=== PATIENT | female | born 1950 | race Two or more races ===

== ENCOUNTER 2020-01-04 07:01 | Emergency (ER) | payer MEDICARE, OTHER ==
[~2020-01-04] VITALS: Ht 170.2 cm; Wt 77.1 kg
[2020-01-04 08:12] LABS: Basophils # (auto) 0.1 10 ^3/uL (0-0.2); Basophils % (auto) 0.8 % (0.0-2.0); Eosinophils # (auto) 0.2 10 ^3/uL (0-0.8); Hematocrit 40.9 % (36.0-46.0); Hemoglobin 13.5 g/dL (12.2-16.2); Lymphocytes # (auto) 1.8 10 ^3/uL (0.4-5.4); Lymphocytes % (auto) 29.7 % (10.0-50.0); Mean Corpuscular Hemoglobin 30.5 pg (28.0-32.0); Mean Corpuscular Hgb Conc. 33.1 g/dL (32.0-36.0); Mean Corpuscular Volume 92.1 fL (80.0-100.0); Monocytes # (auto) 0.7 10 ^3/uL (0-1.3); Monocytes % (auto) 11.9 % (0.0-12.0); Neutrophils # (auto) 3.3 10 ^3/uL (1.6-8.6); Neutrophils % (auto) 53.6 % (37.0-80.0); Nucleated Red Blood Cells % 0.1 %; Platelet Count (auto) 245 10^3/uL (140-450); Red Blood Cells 4.44 10^6/uL (4.0-5.20); Red Cell Distribution Width 13.2 % (11.8-14.3); White Blood Cell 6.2 10^3/uL (4.4-10.8)
[2020-01-04] MEDS ORDERED: SODIUM CHLORIDE 0.9% 1,000 ML IV ONE (08:19)
[2020-01-04 08:44] LABS: Albumin 3.7 g/dL (3.4-5.0); Anion Gap 7 (5-15); Calcium 9.2 mg/dL (8.5-10.1); Carbon Dioxide 26 mmol/L (21-32); Chloride 110 mmol/L (98-107); Potassium 4.3 mmol/L (3.5-5.1); Sodium 143 mmol/L (136-145)
[2020-01-04 08:47] LABS: Salicylate < 1.7 mg/dL (2.8-20.0)
[2020-01-04 08:53] LABS: Alanine Aminotransferase 23 U/L (13-56); Alkaline Phosphatase 88 U/L (45-117); Aspartate Aminotransferase 22 U/L (15-37); BUN/Creatinine Ratio 12.5; Bilirubin, Total 0.2 mg/dL (0.2-1.0); Blood Urea Nitrogen 8 mg/dL (7-18); GFR African American 118 mL/min; GFR Non-African American 98 mL/min; Glucose 141 mg/dL (74-106); Magnesium 2.1 mg/dL (1.6-2.6); Total Protein 7.5 g/dL (6.4-8.2)
[2020-01-04 08:56] LABS: Acetaminophen < 2.0 ug/mL (10-30)
[2020-01-04 09:08] LABS: INR 1.01 (0.9-1.15); Partial Thromboplastin Time 25.7 sec (23.0-31.2)
[2020-01-04 09:56] LABS: Urine Bacteria FEW /hpf (None Seen); Urine Blood Negative /uL (Negative); Urine Specific Gravity 1.007 (1.001-1.035); Urine WBC 6 /hpf (0 - 5)
[2020-01-04 10:03] LABS: Amphetamine Screen, Urine NEGATIVE (NEGATIVE); Barbiturate Scree,Urine NEGATIVE (NEGATIVE); Benzodiazephine Screen, Urine NEGATIVE (NEGATIVE); Cannabinoid Screen, Urine NEGATIVE (NEGATIVE); Cocaine Screen, Urine NEGATIVE (NEGATIVE); Opiate Scree,Urine NEGATIVE (NEGATIVE); Phencyclidine Screen, Urine NEGATIVE (NEGATIVE)
[2020-01-04] MEDS ORDERED: ATOR20TA PO (12:06)
[2020-01-04] MEDS ORDERED: LAMO150T26 PO (12:06)
[2020-01-04] MEDS ORDERED: LEVO125T7 PO (12:06)
[2020-01-04] MEDS ORDERED: LISI-648 PO (12:06)
[2020-01-04] MEDS ORDERED: METH750T3 PO (12:06)
[2020-01-04] MEDS ORDERED: AMLO5TAB15 PO (12:06)
[2020-01-04] MEDS ORDERED: GABA250S2 PO (12:06)
[2020-01-04] MEDS ORDERED: BUPR100T7 PO (12:06)
[2020-01-04] MEDS ORDERED: FLUT250M2 INH (12:06)
[2020-01-04] MEDS ORDERED: BUPR5DIS TOP (12:06)
[2020-01-04] MEDS ORDERED: MONT10TA34 PO (12:06)
[2020-01-04] MEDS ORDERED: FLUO60TA7 PO (12:06)
[2020-01-04] MEDS ORDERED: OMEP20TA PO (12:06)
[2020-01-04] MEDS ORDERED: FLUT0.05 NAS (12:06)
[2020-01-04] MEDS ORDERED: TRAZ-181 PO (12:06)
[2020-01-04] MEDS ORDERED: PERCOT PO (12:08)
[2020-01-04 17:01] VITALS: BP 160/70
== END 2020-01-04 17:45 | disposition home or self-care (01) ==
LOC: ER 07:01 → EDBD 07:01 → ER 17:45
DX: F31.9 Bipolar disorder, unspecified (principal); R40.4 Transient alteration of awareness; F10.10 Alcohol abuse, uncomplicated; Y90.9 Presence of alcohol in blood, level not specified
CPT/HCPCS: 36415; 70450; 71045; 80053; 80307; 80320; 80329; 81001; 82962; 83735; 84443; 84484; 85025; 85610; 85730; 93005; 96360; 96361

== ENCOUNTER 2023-07-09 09:23 | Emergency (ER) | payer MEDICARE ==
[~2023-07-09] VITALS: Ht 162.6 cm; Wt 82.0 kg
[~2023-07-09 09:23] MED LIST: AMLO1TAB22 PO; ATOR20TA PO; BUPR5DIS TOP; FLUO60TA7 PO; FLUT0.05 NAS; FLUT250M2 INH; GABA250S7 PO; LAMO150T26 PO; LEVO125T7 PO; LISI10TA34 PO; METH-1182 PO; MONT-8 PO; OMEP20TA PO; PERCOT PO; TRAZ-181 PO; [UNRECOGNIZED DRUG - CODE] PO
[2023-07-09 10:21] LABS: Chloride 108 mmol/L (98-107); Potassium 3.6 mmol/L (3.5-5.1); Sodium 143 mmol/L (136-145)
[2023-07-09 10:22] LABS: Anion Gap 6 (5-15); Calcium 9.4 mg/dL (8.5-10.1); Carbon Dioxide 29 mmol/L (20-30)
[2023-07-09 10:26] LABS: Basophils # (auto) 0 10 ^3/uL (0-0.2); Basophils % (auto) 0.6 % (0.0-2.0); Eosinophils # (auto) 0.1 10 ^3/uL (0-0.8); Hematocrit 37.4 % (36.0-46.0); Hemoglobin 12.5 g/dL (12.2-16.2); Lymphocytes # (auto) 1.5 10 ^3/uL (0.4-5.4); Lymphocytes % (auto) 20.9 % (10.0-50.0); Mean Corpuscular Hemoglobin 30.6 pg (28.0-32.0); Mean Corpuscular Hgb Conc. 33.3 g/dL (32.0-36.0); Mean Corpuscular Volume 91.8 fL (80.0-100.0); Monocytes # (auto) 0.6 10 ^3/uL (0-1.3); Monocytes % (auto) 8.2 % (0.0-12.0); Neutrophils # (auto) 4.8 10 ^3/uL (1.6-8.6); Neutrophils % (auto) 68.3 % (37.0-80.0); Red Blood Cells 4.08 10^6/uL (4.0-5.20); Red Cell Distribution Width 14.3 % (11.8-14.3); White Blood Cell 7.1 10^3/uL (4.4-10.8)
[2023-07-09 10:27] LABS: Blood Urea Nitrogen 7 mg/dL (9-23); Glucose 105 mg/dL (74-106)
[2023-07-09] MEDS: HYDROcodone-ACET 7.5/325MG TAB PO ONE (14:00)
[2023-07-09 14:33] VITALS: BP 141/73; PULSE 82; RESP 18; TEMP 98.4; O2SAT 95
[2023-07-09 14:34] LABS: Urine Bacteria NONE SEEN /hpf (None Seen); Urine Blood Negative /uL (Negative); Urine Clarity Clear (Clear); Urine Color Colorless (Yellow); Urine Protein, UAD Negative (Negative); Urine Specific Gravity 1.012 (1.001-1.035); Urine Urobilinogen Normal (Negative); Urine WBC 10 /hpf (0 - 5); Urine pH 6.5 (5.0-8.0)
== END 2023-07-09 14:34 | disposition home or self-care (01) ==
LOC: ER 09:23 → EDBD 09:23 → ER 14:30
DX: I10 Essential (primary) hypertension (principal); R19.7 Diarrhea, unspecified; E11.9 Type 2 diabetes mellitus without complications; E78.5 Hyperlipidemia, unspecified; J44.9 Chronic obstructive pulmonary disease, unspecified; Z79.899 Other long term (current) drug therapy
CPT/HCPCS: 36415; 80048; 81001; 85025; 93005

== ENCOUNTER 2024-09-03 10:52 | Inpatient (IN) | payer MEDICARE ==
[~2024-09-03] VITALS: Ht 160 cm; Wt 84.6 kg
--- NOTE | 2024-09-03 11:39 | ECG ---
[facility] Test Date: 2024-09-03 Test Time: 11:23:29 Pat Name: ANNALISA WEBER Department: ER Room: 0280T Gender: F Node Js Developer: JOSE CRUZ : 1950 Requested By: SADE HERNANDEZ Order Number: [id number] Reading MD: Scott Rose Measurements Intervals [place] Rate: 66 P: 60 IN: 185 QRS: 64 QRSD: 94 T: 58 QT: 427 QTc: 448 Interpretive Statements Sinus rhythm Low voltage, precordial leads RSR' in V1 or V2, right VCD or RVH Electronically Signed On 09-04-2024 21:12:24 PDT by Scott Rose Please click the below link to view image of tracing.
--- NOTE | 2024-09-03 11:52 | ED.PDOC ---
Musculoskeletal HPI Comments 73y F who presents to the ED for chief complaint of extremity swelling - pt states she has been having LLE leg, ankle and foot pain with swelling for the past 3 days - pt states she has history of DVT many years ago and states she was previously on blood thinner but states she is currently not taking blood thinner currently - pt now in the ED, noted to have 02 sat at 88% on room air air and placed on 2 L via nc but states she does use 2 L via nc as needed - pt otherwise denies shortness of breath, chest pain or any associated symptoms - Pt denies any other symptoms at this time PMH: DM, HTN, DVT, PE, asthma, HLD PSH: L knee, hernia, gallbladder, Meds: unknown Allergies: denies social history: denies ETOH use, denies tobacco use, denies drug use WEBER: Left lower extremity pain swelling HPI: Poor Historian. REVIEW OF SYSTEMS: CONSTITUTIONAL: Denies acute: fever, diaphoresis, chills, generalized weakness. HEAD: Denies acute: headache, photophobia Eyes: Denies acute: Double vision, vision loss, eye pain, eye discharge. EARS: Denies acute: tinnitus, hearing loss, ear discharge, ear pain, THROAT: Denies acute: sore throat, swelling, difficulty swallowing , pain with swallowin g, change in voice. NECK: Denies acute: neck pain, neck swelling, stiff neck. HEART: Denies acute : chest pain, palpitations, LUNGS: Denies acute: SOB, wheezing, cough, hemoptysis ABDOMEN: Denies acute: abdominal pain, Nausea, Vomiting, diarrhea, melena , hematemesis, hematochezia SKIN: Denies acute: rash, redness, lesions, itchiness. EXTREMITIES: Denies acute: calf pain, numbness, tingling, weakness, Denies acute: Low back pain. Neuro: Denies acute: focal neurological deficit, motor or sensory focal neurological deficit, tremors, seizure like activity, confusion, dizziness, change in mental status, loss of bowel or bladder function, cauda equina like symptoms. : Denies acute: dysuria, hematuria, flank pain, increase in urinary frequency. PSYCH: Denies acute: hallucination, suicidal ideation, homicidal ideation. FEMALE: Denies acute: abnormal vaginal bleeding, foul odor, unusual discharge. PHYSICAL EXAM: General: ---mild-----acute distress, awake and alert. Head: normocephalic, atraumatic. Neck: supple, trachea is midline, no swelling. Throat: Normal phonation. Eyes:, no erythema, no purulent discharge, no proptosis, no icterus. Heart: regular rate, regular rhythm, no significant murmur appreciated. Lungs: no apparent respiratory distress, Able to speak in full sentences. No wheezing, no rhonchi, no crackles. No stridors Clear to auscultation bilaterally. Abdomen: non tender to palpation, non distended, soft, no guarding, no rebound, + bowel sounds. Neuro: Awake, Alert, oriented to name, self, situation, follows commands GCS=15. Speech is normal. Skin: no petechia, no purpura, no cyanosis, non-pale, not jaundice. Lower extremities: --trace left lower extremity- Pitting edema Evaluation of the area of complaint of left lower extremity. no deformity, mild bran malleolar swelling, minimal erythema, patient is neurovascularly intact in the affected extremity. Pedal pulses palpable. Sensory and motor are present. Makes eye contact. moves all four extremities. Face: no apparent facial droop. Ambulating in the ED with a walker. ED COURSE: Chief Complaint: Extremity Swelling Time Seen by MD: 10:57 Primary Care Provider: STEVE Knox Notes: Nurses Notes Allergies: Coded Allergies: NO KNOWN ALLERGIES (Unverified , 07/09/23) Home Meds Reported Medications Oxycodone W/ Acetaminophen (Percocet 5/325MG) 1 Tab Tb, 1 TAB PO QID, #120 TAB 01/04/20 Trazodone HCl (Trazodone Hydrochloride) 50 Mg Tab, 100 MG PO HS, TAB 01/04/20 Omeprazole (Gnp Omeprazole) 20 Mg Tab, 2 TAB PO BID, #90 TAB 1 Refill 01/04/20 Montelukast Sodium (MONTELUKAST SODIUM) 10 Mg Tab, 1 TAB PO DAILY, #30 TAB 5 Refills 01/04/20 Methocarbamol (Methocarbamol) 750 Mg Tab, 750 MG PO BID for 30 Days, MG 01/04/20 Lisinopril (Lisinopril) 10 Mg Tab, 10 MG PO DAILY for 30 Days, MG 01/04/20 Levothyroxine Sodium (Levothyroxine Sodium) 125 Mcg Tab, 125 MCG PO QAM for 30 Days, MCG 01/04/20 Lamotrigine (Lamotrigine) 150 Mg Tab, 1 TAB PO BID, #60 TAB 1 Refill 01/04/20 Gabapentin (GABAPENTIN) 250 Mg/5 Ml [place], 400 MG PO BID, ML 01/04/20 Fluoxetine HCl (Fluoxetine) 60 Mg Tab, 30 MG PO, TAB 01/04/20 Fluticasone Propionate (Fluticasone Propionate) 0.05 % Cre, 50 MCG ISAIAS for 30 Days, MCG 01/04/20 Bupropion Hcl (Bupropion Hcl Sr) 100 Mg Tab, 100 MG PO, TAB 01/04/20 Buprenorphine (BUTRANS) 5 Mcg/Hr Dis, 1 PATCH TOP QWEEKLY, #4 PATCH 1 Refill 01/04/20 Atorvastatin Calcium (Lipitor) 20 Mg Tab, 1 TAB PO DAILY, #90 TAB 1 Refill 01/04/20 Amlodipine Besylate (Amlodipine Besylate) 5 Mg Tab, 2.5 MG PO DAILY for 30 Days, MG 01/04/20 Fluticasone-Salmeterol (Advair Diskus 250/50) 1 Puff Ih, 1 PUFF INH BID, #3 INHALER 3 Refills 01/04/20 Information Source: Patient Mode of Arrival: Wheelchair Past Medical History PAST MEDICAL HISTORY: COPD, DM, High Lipids, HTN Surgical History: Denies all surgeries 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 Was a procedure done?: No Differential Diagnosis EXT Differential Diagnosis: Cellulitis, CHF, Deep Vein Thrombosis, Compartment Syndrome, Fracture, Sprain, Dislocation, Laceration, Gout, DJD, Myocardial Infarction, Contusion, Strain, Rheumatoid, Septic, Hernia, Neurovascular injury, Arthritis, Bursitis, Other (Leg swellingDdx include but not limited to DVT, ischemic limb, pitting edema, volume overload, CHF, cellulitis, hematoma, compartment syndrome, dependent edema, venous stasis.) X-Ray, Labs, Meds, VS Vital Signs Date Time Temp Pulse Resp B/P (MAP) Pulse Ox O2 Delivery O2 Flow Rate FiO2 09/03/24 13:36 62 13 94 Nasal Cannula* 2 28 09/03/24 12:54 97.0 64 16 127/73 (91) 90 97.0 09/03/24 11:23 66 09/03/24 11:06 98.3 70 20 109/64 (79) 88 98.3 Lab Test 09/03/24 12:51 09/03/24 11:55 09/03/24 11:15 Range/Units Troponin I High Sensitivity 3 L 4 </=34 ng/L White Blood Count 7.3 4.4-10.8 10^3/uL Red Blood Count 4.46 4.0-5.20 10^6/uL Hemoglobin 13.6 12.2-16.2 g/dL Hematocrit 41.5 36.0-46.0 % Mean Corpuscular Volume 93.0 80.0-100.0 fL Mean Corpuscular Hemoglobin 30.5 28.0-32.0 pg Mean Corpuscular Hemoglobin Concent 32.8 32.0-36.0 g/dL Red Cell Distribution Width 13.7 11.8-14.3 % Platelet Count 206 140-450 10^3/uL Mean Platelet Volume 8.8 6.9-10.8 fL Neutrophils (%) (Auto) 54.4 37.0-80.0 % Lymphocytes (%) (Auto) 32.4 10.0-50.0 % Monocytes (%) (Auto) 10.6 0.0-12.0 % Eosinophils (%) (Auto) 1.9 0.0-7.0 % Basophils (%) (Auto) 0.7 0.0-2.0 % Neutrophils # (Auto) 4.0 1.6-8.6 10 ^3/uL Lymphocytes # (Auto) 2.4 0.4-5.4 10 ^3/uL Monocytes # (Auto) 0.8 0-1.3 10 ^3/uL Eosinophils # (Auto) 0.1 0-0.8 10 ^3/uL Basophils # (Auto) 0.1 0-0.2 10 ^3/uL Nucleated Red Blood Cells 0.0 % Erythrocyte Sedimentation Rate 8 0-20 mm/hr Prothrombin Time 10.7 9.3-11.8 sec Prothrombin Time INR 1.01 0.9-1.15 Activated Partial Thromboplast Time 28.1 24.5-34.5 SEC Sodium Level 143 136-145 mmol/L Potassium Level 4.3 3.5-5.1 mmol/L Chloride Level 103 98-107 mmol/L Carbon Dioxide Level 33 H 20-31 mmol/L Anion Gap 7 5-15 Blood Urea Nitrogen 14 9-23 mg/dL Creatinine 1.09 H 0.550-1.02 mg/dL Glomerular Filtration Rate Calc 54 >90 mL/min BUN/Creatinine Ratio 12.8 10.0-20.0 Serum Glucose 90 74-106 mg/dL Lactic Acid Level 0.5 0.4-2.0 mmol/L Calcium Level 10.6 H 8.7-10.4 mg/dL Total Bilirubin 0.3 0.2-1.0 mg/dL Aspartate Amino Transferase (AST) 15 13-40 U/L Alanine Aminotransferase (ALT) 17 7-40 U/L Alkaline Phosphatase 63 46-116 U/L C-Reactive Protein High Sensitivity 0.46 <1.0 mg/dL B-Type Natriuretic Peptide 94.56 0-100 pg/mL Total Protein 6.7 5.7-8.2 g/dL Albumin 4.4 3.2-4.8 g/dL Urine Color Light-yellow Yellow Urine Clarity Clear Clear Urine pH 5.5 5.0-9.0 Urine Specific [place] 1.015 1.001-1.035 Urine Protein Negative Negative Urine Ketones Negative Negative Urine Blood Negative Negative /uL Urine Nitrite Negative Negative Urine Bilirubin Negative Negative Urine Urobilinogen Normal Negative mg/dL Urine Leukocyte Esterase 1+ Negative /uL Urine RBC 1 0 - 4 /hpf Urine Microscopic WBC 4 0-5 /HPF Urine Squamous Epithelial Cells Few <5 /hpf Urine Bacteria None seen None Seen /hpf Urine Glucose Normal Normal mg/dL Current Medications Medications (Trade) Dose Ordered Sig/[place] Route Start Time Stop Time Status Last Admin Enoxaparin Sodium (Lovenox) 80 mg STAT STAT SC 09/03/24 12:46 09/03/24 12:47 DC 09/03/24 13:10 [facility] [id number] [place] [id number] Ph: [phone] DIAGNOSTIC IMAGING Diagnostic Imaging Report : [id number] Signed PATIENT: ANNALISA WEBERAACCT: [id number] UNIT: [id number] : 1950 LOC: ER ROOM / BED: / AGE / SEX: 73 / F ADM STATUS: REG ER SERVICE 1241 ORDERING PHYSICIAN: SADE HERNANDEZ DO PROCEDURE(s): CTACH - CT ANGIO CHEST CONTRAST REASON: DVT ORDER NUMBER(s): [id number], ACCESSION NUMBER(s): [id number] CLINICAL INFORMATION: 73 years old, Female; DVT. TECHNIQUE: Axial CTA images of the chest were obtained after the uneventful administration of 100 mL of Omnipaque 350 IV contrast. Coronal and sagittal reformatted images and MIP images were obtained, reviewed, and stored. One or mo re of the following dose reduction techniques were used: Automated exposure control. Adjustment of mA and/or kV according to patient size. CTDIvol = 27.3 mGy DLP = 884.14 mGy-cm COMPARISON: Chest radiograph dated 09/03/2024. Left lower extremity venous d uplex exam dated 09/03/2024. FINDINGS: Pulmonary arteries: No evidence of pulmonary embolism. Main pulmonary artery is dilated up to 4 cm, may be seen with pulmonary arterial hypertension in the appropriate clinical setting. Aorta: No aneurysm or dissection. Moderate atherosclerotic calcification. Cardiac: Heart size is within normal limits. Marked coronary artery calcifica tion. Mediastinum/jc: Mildly prominent mediastinal lymph nodes, with the largest measuring up to 1 cm in short axis of the AP window, likely reactive lymph nodes. Lungs: Atelectasis in the lower lobes bilaterally. Additional scattered subsegmental areas of atelectasis are seen patchy opacities in the left lower lobe, may be infectious or inflammatory in nature. Chest wall: No mass or other abnormality. Upper abdomen: Postsurgical changes of left nephrectomy partially visualized. Bones: No acute fracture or suspicious intraosseous lesions. IMPRESSION: 1. Dense of pulmonary embolism. 2. Dilated main pulmonary artery, may be seen with pulmonary arterial hypertension in the appropriate clinical setting. 3. Atelectasis in the lower lobes with patchy opacities in the left lower lobe, possible superimposed infectious / inflammatory etiology. Correlate with clinical findings. 4. Additional findings as detailed above. ATED BY: JUVE REINA DO DICTATED DATE/TIME: 09/03/241344 SIGNED BY: JUVE REINA DO SIGNED DATE/TIME: 09/03/241344 CC: [place] [id number] Ph: [phone] DIAGNOSTIC IMAGING Diagnostic Imaging Report : [id number] Signed PATIENT: ANNALISA WEBERAACCT: [id number] UNIT: [id number] : 1950 LOC: ER ROOM / BED: / AGE / SEX: 73 / F ADM STATUS: REG ER SERVICE 114 ORDERING PHYSICIAN: SADE HERNANDEZ DO PROCEDURE(s): LLDVT - LT Lower DVT REASON: LLE swelling ORDER NUMBER(s): [id number], ACCESSION NUMBER(s): [id number] Left lower extremity venous duplex Clinical History: LLE swelling Comparison: None Findings: Duplex Doppler evaluation of the deep venous system of the left lower extremity from the common femoral vein to the popliteal vein including color Doppler and spectral/pulsed waveform analysis was performed. Occluded left common fremoral vein. There is compressibility/patency of the great saphenous vein at the proximal thigh. The femoral vein demonstrates appropriate compressibility and waveform variability. The deep femoral vein demonstrates appropriate compressibility and waveform variability. The popliteal vein demonstrates appropriate compressibility and waveform variability. There is normal compressibility at the tibioperoneal trunk. Impression: DVT left common femoral vein. Critical Result: DVT Findings discussed with SADE HERNANDEZ at 09/03/2024 12:43 PM, and acknowledged receipt and understanding of the findings. .. If clinical concern/symptoms persist or worsen, short-interval follow-up study is suggested. ATED BY: BENEDICT GRIMES MD DICTATED DATE/TIME: 09/03/241242 SIGNED BY: BENEDICT GRIMES MD SIGNED DATE/TIME: 09/03/241242 CC: [place] [id number] Ph: [phone] DIAGNOSTIC IMAGING Diagnostic Imaging Report : [id number] Signed PATIENT: ANNALISA WEBERCT: [id number] UNIT: [id number] : 1950 LOC: ER ROOM / BED: / AGE / SEX: 73 / F ADM STATUS: REG ER SERVICE 1145 ORDERING PHYSICIAN: SADE HERNANDEZ DO PROCEDURE(s): CXRP - CHEST PORTABLE REASON: LLE swelling/pain, ORDER NUMBER(s): [id number], ACCESSION NUMBER(s): [id number] CHEST RADIOGRAPH Indication: LLE swelling/pain, Technique: Single frontal view of the chest was obtained COMPARISON: CHEST PORTABLE on DOS: 01/04/20 FINDINGS: Lines and Tubes: None Lungs: Left basilar subsegmental atelectasis. Pleura: No effusion. No pneumothorax. Cardiomediastinal contours: Unremarkable Bones: Unremarkable IMPRESSION: Left basilar subsegmental atelectasis. ATED BY: BAO MCCORD MD DICTATED DATE/TIME: 09/03/24 1212 SIGNED BY: BAO MCCORD MD SIGNED DATE/TIME: 09/03/24 121 CC: [place] [id number] Ph: [phone] DIAGNOSTIC IMAGING Diagnostic Imaging Report : [id number] Signed PATIENT: ANNALISA WEBERCT: [id number] UNIT: [id number] : 1950 LOC: ER ROOM / BED: / AGE / SEX: 73 / F ADM STATUS: REG ER SERVICE 1241 ORDERING PHYSICIAN: SADE HERNANDEZ DO PROCEDURE(s): CTACH - CT ANGIO CHEST CONTRAST REASON: DVT ORDER NUMBER(s): [id number], ACCESSION NUMBER(s): [id number] CLINICAL INFORMATION: 73 years old, Female; DVT. TECHNIQUE: Axial CTA images of the chest were obtained after the uneventful administration of 100 mL of Omnipaque 350 IV contrast. Coronal and sagittal reformatted images and MIP images were obtained, reviewed, and stored. One or more of the following dose reduction techniques were used: Automated exposure control. Adjustment of mA and/or kV according to patient size. CTDIvol = 27.3 mGy DLP = 884.14 mGy-cm COMPARISON: Chest radiograph dated 09/03/2024. Left lower extremity venous duplex exam dated 09/03/2024. FINDINGS: Pulmonary arteries: No evidence of pulmonary embolism. Main pulmonary artery is dilated up to 4 cm, may be seen with pulmonary arterial hypertension in the appropriate clinical setting. Aorta: No aneurysm or dissection. Moderate atherosclerotic calcification. Cardiac: Heart size is within normal limits. Marked coronary artery calcification. Mediastinum/jc: Mildly prominent mediastinal lymph nodes, with the largest measuring up to 1 cm in short axis of the AP window, likely reactive lymph node s. Lungs: Atelectasis in the lower lobes bilaterally. Additional scattered subsegmental areas of atelectasis are seen patchy opacities in the left lower lobe, may be infectious or inflammatory in nature. Chest wall: No mass or other abnormality. Upper abdomen: Postsurgical changes of left nephrectomy partially visualized. Bones: No acute fracture or suspicious intraosseous lesions. IMPRESSION: 1. Dense of pulmonary embolism. 2. Dilated main pulmonary artery, may be seen with pulmonary arterial h ypertension in the appropriate clinical setting. 3. Atelectasis in the lower lobes with patchy opacities in the left lower lobe, possible superimposed infectious / inflammatory etiology. Correlate with clinical findings. 4. Additional findings as detailed above. ATED BY: JUVE REINA DO DICTATED DATE/TIME: 09/03/241344 SIGNED BY: JUVE REINA DO SIGNED DATE/TIME: 09/03/241344 CC: Time of 1ST Reevaluation: 00:00 Reevaluation 1ST: Patient Education/Counseling: Diagnosis, Treatment Family Education/Counseling: No Family Present Comments Patient presented with the above HPI.--leg pain and swelling----workup was initiated. patient was found with the above mentioned diagnosis. the following medications were ordered: please refer to order lists of meds and tests obtained by myself Dr. Hernandez. Patient ED course and VS have been stabilized. Patient has been reassessed in the ED and remained in a stable condition. Pertinent incidental findings were discussed with the patient and/or family. Patient/family voices understanding and is agreeable with plan. Patient has been observed in the ED adequate length of time to insure improvement/stability. Escalation of care considered: Consideration of escalation to observation or admission Patient was found with DVT. Lovenox anticoagulation was initiated. CT angiogram of the chest was obtained to rule out PE. Patient was ADMITTED to the medicine team for further evaluation and treatment of their presentation. All the reports of any imaging studies that were ordered by myself were reviewed by myself. Departure 1 Departure Time of Disposition: 12:22 Impression: Primary Impression: Left leg DVT Disposition: ADMITTED INPATIENT Admit to: Tele Condition: Guarded Discharged With: Self Critical Care Note Critical Care Time?: Yes (45 min-critical care time only) Heart Score Heart Score: Heart Score Response (Comments) Value History Slightly Suspicious 0 EKG Normal 0 Age >65 2 Risk Factors >3 or Hx ASHD 2 Troponin Normal limit 0 Total 4 I personally scribed for SADE HERNANDEZ DO ([email or web address]) on 09/03/24 at 11:52. Electronically submitted by Kwan Carrero ([employer]). I personally scribed for SADE HERNANDEZ DO ([email or web address]) on 09/03/24 at 15:49. Electronically submitted by Kwan Carrero ([employer]). I personally scribed for SADE HERNANDEZ DO ([email or web address]) on 09/03/24 at 20:52. Electronically submitted by Kwan Carrero ([employer]). I personally scribed for SADE HERNANDEZ DO ([email or web address]) on 09/03/24 at 20:53. Electronically submitted by Kwan Carrero ([employer]). SADE HERNANDEZ DO September 03, 2024 11:52
--- NOTE | 2024-09-03 12:15 | DVH ---
CHEST RADIOGRAPH Indication: LLE swelling/pain, Technique: Single frontal view of the chest was obtained COMPARISON: CHEST PORTABLE on DOS: 01/04/20 FINDINGS: Lines and Tubes: None Lungs: Left basilar subsegmental atelectasis. Pleura: No effusion. No pneumothorax. Cardiomediastinal contours: Unremarkable Bones: Unremarkable IMPRESSION: Left basilar subsegmental atelectasis.
[2024-09-03 12:16] LABS: Basophils # (auto) 0.1 10 ^3/uL (0-0.2); Basophils % (auto) 0.7 % (0.0-2.0); Eosinophils # (auto) 0.1 10 ^3/uL (0-0.8); Eosinophils % (auto) 1.9 % (0.0-7.0); Hematocrit 41.5 % (36.0-46.0); Hemoglobin 13.6 g/dL (12.2-16.2); Lymphocytes # (auto) 2.4 10 ^3/uL (0.4-5.4); Lymphocytes % (auto) 32.4 % (10.0-50.0); Mean Corpuscular Hemoglobin 30.5 pg (28.0-32.0); Mean Corpuscular Hgb Conc. 32.8 g/dL (32.0-36.0); Monocytes # (auto) 0.8 10 ^3/uL (0-1.3); Monocytes % (auto) 10.6 % (0.0-12.0); Neutrophils % (auto) 54.4 % (37.0-80.0); Platelet Count (auto) 206 10^3/uL (140-450); Red Blood Cells 4.46 10^6/uL (4.0-5.20); Red Cell Distribution Width 13.7 % (11.8-14.3); White Blood Cell 7.3 10^3/uL (4.4-10.8)
[2024-09-03 12:32] LABS: Alanine Aminotransferase 17 U/L (7-40); Albumin 4.4 g/dL (3.2-4.8); Alkaline Phosphatase 63 U/L (46-116); Anion Gap 7 (5-15); Aspartate Aminotransferase 15 U/L (13-40); BUN/Creatinine Ratio 12.8 (10.0-20.0); Blood Urea Nitrogen 14 mg/dL (9-23); CRP High Sensitivity 0.46 mg/dL (<1.0); Calcium 10.6 mg/dL (8.7-10.4); Carbon Dioxide 33 mmol/L (20-31); Chloride 103 mmol/L (98-107); Glucose 90 mg/dL (74-106); Potassium 4.3 mmol/L (3.5-5.1); Sodium 143 mmol/L (136-145); Total Protein 6.7 g/dL (5.7-8.2)
[2024-09-03 12:33] LABS: Bilirubin, Total 0.3 mg/dL (0.2-1.0)
[2024-09-03 12:37] LABS: Urine Bacteria None Seen /hpf (None Seen)
[2024-09-03 12:46] LABS: Urine Blood Negative /uL (Negative); Urine Clarity Clear (Clear); Urine Color Light-Yellow (Yellow); Urine Protein, UAD Negative (Negative); Urine Specific Gravity 1.015 (1.001-1.035); Urine Squamous Epithelial Cell FEW /hpf (<5); Urine Urobilinogen Normal (Negative); Urine WBC 4 /HPF (0-5); Urine pH 5.5 (5.0-9.0)
--- NOTE | 2024-09-03 12:46 | DVH ---
Left lower extremity venous duplex Clinical History: LLE swelling Comparison: None Findings: Duplex Doppler evaluation of the deep venous system of the left lower extremity from the common femor al vein to the popliteal vein including color Doppler and spectral/pulsed waveform analysis was perfo rmed. Occluded left common fremoral vein. There is compressibility/patency of the great saphenous vein at the proximal thigh. The femoral vein demonstrates appropriate compressibility and waveform variability. The deep femoral vein demonstrates appropriate compressibility and waveform variability. The popliteal vein demonstrates appropriate compressibility and waveform variability. There is normal compressibility at the tibioperoneal trunk. Impression: DVT left common femoral vein. Critical Result: DVT Findings discussed with SADE HERNANDEZ at 09/03/2024 12:43 PM, and acknowledged receipt and understandin g of the findings. .. If clinical concern/symptoms persist or worsen, short-interval follow-up study is suggested.
[2024-09-03 13:01] LABS: Erythrocyte Sedimentation Rate 8 mm/hr (0-20)
[2024-09-03] MEDS: ENOXAPARIN SOD 80 MG/0.8ML SYRINGE SC STA (13:10)
[2024-09-03] MEDS: IOHEXOL 350 MG/ML 100ML IJ ONE (13:25)
[2024-09-03 13:36] VITALS: PULSE 62; RESP 13; O2SAT 94
--- NOTE | 2024-09-03 13:47 | DVH ---
CLINICAL INFORMATION: 73 years old, Female; DVT. TECHNIQUE: Axial CTA images of the chest were obtained after the uneventful administration of 100 mL of Omnipaque 350 IV contrast. Coronal and sagittal reformatted images and MIP images were obtained, r eviewed, and stored. One or more of the following dose reduction techniques were used: Automated expo sure control. Adjustment of mA and/or kV according to patient size. CTDIvol = 27.3 mGy DLP = 884.14 mGy-cm COMPARISON: Chest radiograph dated 09/03/2024. Left lower extremity venous duplex exam dated 09/04/19. FINDINGS: Pulmonary arteries: No evidence of pulmonary embolism. Main pulmonary artery is dilated up to 4 cm, m ay be seen with pulmonary arterial hypertension in the appropriate clinical setting. Aorta: No aneurysm or dissection. Moderate atherosclerotic calcification. Cardiac: Heart size is within normal limits. Marked coronary artery calcification. Mediastinum/jc: Mildly prominent mediastinal lymph nodes, with the largest measuring up to 1 cm in short axis of the AP window, likely reactive lymph nodes. Lungs: Atelectasis in the lower lobes bilaterally. Additional scattered subsegmental areas of atelect asis are seen patchy opacities in the left lower lobe, may be infectious or inflammatory in nature. Chest wall: No mass or other abnormality. Upper abdomen: Postsurgical changes of left nephrectomy partially visualized. Bones: No acute fracture or suspicious intraosseous lesions. IMPRESSION: 1. Dense of pulmonary embolism. 2. Dilated main pulmonary artery, may be seen with pulmonary arterial hypertension in the appropriate clinical setting. 3. Atelectasis in the lower lobes with patchy opacities in the left lower lobe, possible superimposed infectious / inflammatory etiology. Correlate with clinical findings. 4. Additional findings as detailed above.
[2024-09-03] MEDS ORDERED: DOCUSATE SOD 100 MG CAP PO PRN (14:30)
--- NOTE | 2024-09-03 14:53 | DVHHP2 ---
History of Present Illness Reason for Visit: left foot swelling History of Present Illness Hollie Higgins is a 73-year-old female with past medical history of COPD, diabetes, hypertension, and hyperlipidemia, who came in for left foot swelling. Patient states she noticed the swelling about 2 days ago. The swelling continu ed, was worsening, and causing pain so she came to the hospital. Patient states that about 3 years ago she had a DVT and PE. She was on blood thinners for about 6 months and was then taken off of them. Cardiovascular: HTN, hyperipidemia Pulmonary: COPD Psych: Anxiety, Depression Endocrine: Diabetes Past Surgical History: Hysterectomy, Hernia Repair, Other (left knee and back surgery) Smoke: No ALCOHOL: none Drugs: None Lives: with Family Domestic Violence: Neg Review of Systems Constitutional: No: Fever, Chills, Sweats, Weakness, Malaise, Other Eyes: No: Pain, Vision change, Conjunctivae inflammation, Eyelid inflammation, Other, Redness ENT: No: Ear pain, Ear discharge, Nose pain, Nose discharge, Nose congestion, Mouth pain, Mouth swelling, Throat pain, Throat swelling, Other Respiratory: No: Cough, Dry, Shortness of breath, SOB with excertion, Wheezing, Hemoptysis, Pleuritic Pain, Sputum, Wheezing, Other Cardiovascular: No: Chest Pain, Palpitations, Orthopnea, Paroxysmal Noc. Dyspnea, Edema, Lt Headedness, Other Gastrointestinal: No: Nausea, Vomiting, Abdominal Pain, Diarrhea, Constipation, Melena, Hematochezia, Other Genitourinary: No Dysuria, No Frequency, No Incontinence, No Hematuria, No Retention, No Other Musculoskeletal: leg pain (left foot edema and pain); No: other, neck pain, shoulder pain, arm pain, back pain, hand pain, foot pain Skin: No: Rash, Lesions, Jaundice, Bruising, Other Neurological: No: Weakness, Numbness, Incoordination, Change in speech, Confusion, Seizures, Other Allergies: Coded Allergies: NO KNOWN ALLERGIES (Unverified , 07/09/23) Medications Current Medications Medications Dose Ordered Sig/[place] Route Start Time Stop Time Status Last Admin Dose Admin Ondansetron HCl 4 mg Q4HP PRN IV 09/03/24 14:30 UNV Docusate Sodium 100 mg BIDPRN PRN PO 09/03/24 14:30 UNV Exam Vital Signs Vital Signs Date Time Temp Pulse Resp B/P (MAP) Pulse Ox O2 Delivery O2 Flow Rate FiO2 09/03/24 13:36 62 13 94 Nasal Cannula* 2 28 09/03/24 12:54 97.0 127/73 (91) 97.0 General Appearance: Alert, Oriented X3, Cooperative, mild distress HEENT: Atraumatic, PERRLA, Mucous membr. moist/pink Respiratory: Clear to auscultation, Normal air movement Cardiovascular: Regular rate, Normal S1, Normal S2, No murmurs Abdominal: Normal bowel sounds, Soft, No tenderness, No hepatospenomegaly Extremities: No clubbing, No cyanosis, Other (left foot edema) Skin: No rashes, No breakdown, No significant lesion Neuro: Normal gait, Normal speech, Strength at 5/5 X4 ext, Normal tone Psych/Mental Status: Mental status NL, Mood NL Labs/Xrays Labs Test 09/03/24 12:51 09/03/24 11:55 09/03/24 11:15 Range/Units Troponin I High Sensitivity 3 L </=34 ng/L White Blood Count 7.3 4.4-10.8 10^3/uL Red Blood Count 4.46 4.0-5.20 10^6/uL Hemoglobin 13.6 12.2-16.2 g/dL Hematocrit 41.5 36.0-46.0 % Mean Corpuscular Volume 93.0 80.0-100.0 fL Mean Corpuscular Hemoglobin 30.5 28.0-32.0 pg Mean Corpuscular Hemoglobin Concent 32.8 32.0-36.0 g/dL Red Cell Distribution Width 13.7 11.8-14.3 % Platelet Count 206 140-450 10^3/uL Mean Platelet Volume 8.8 6.9-10.8 fL Neutrophils (%) (Auto) 54.4 37.0-80.0 % Lymphocytes (%) (Auto) 32.4 10.0-50.0 % Monocytes (%) (Auto) 10.6 0.0-12.0 % Eosinophils (%) (Auto) 1.9 0.0-7.0 % Basophils (%) (Auto) 0.7 0.0-2.0 % Neutrophils # (Auto) 4.0 1.6-8.6 10 ^3/uL Lymphocytes # (Auto) 2.4 0.4-5.4 10 ^3/uL Monocytes # (Auto) 0.8 0-1.3 10 ^3/uL Eosinophils # (Auto) 0.1 0-0.8 10 ^3/uL Basophils # (Auto) 0.1 0-0.2 10 ^3/uL Nucleated Red Blood Cells 0.0 % Erythrocyte Sedimentation Rate 8 0-20 mm/hr Sodium Level 143 136-145 mmol/L Potassium Level 4.3 3.5-5.1 mmol/L Chloride Level 103 98-107 mmol/L Carbon Dioxide Level 33 H 20-31 mmol/L Anion Gap 7 5-15 Blood Urea Nitrogen 14 9-23 mg/dL Creatinine 1.09 H 0.550-1.02 mg/dL Glomerular Filtration Rate Calc 54 >90 mL/min BUN/Creatinine Ratio 12.8 10.0-20.0 Serum Glucose 90 74-106 mg/dL Lactic Acid Level 0.5 0.4-2.0 mmol/L Calcium Level 10.6 H 8.7-10.4 mg/dL Total Bilirubin 0.3 0.2-1.0 mg/dL Aspartate Amino Transferase (AST) 15 13-40 U/L Alanine Aminotransferase (ALT) 17 7-40 U/L Alkaline Phosphatase 63 46-116 U/L C-Reactive Protein High Sensitivity 0.46 <1.0 mg/dL B-Type Natriuretic Peptide 94.56 0-100 pg/mL Total Protein 6.7 5.7-8.2 g/dL Albumin 4.4 3.2-4.8 g/dL Urine Color Light-yellow Yellow Urine Clarity Clear Clear Urine pH 5.5 5.0-9.0 Urine Specific [place] 1.015 1.001-1.035 Urine Protein Negative Negative Urine Ketones Negative Negative Urine Blood Negative Negative /uL Urine Nitrite Negative Negative Urine Bilirubin Negative Negative Urine Urobilinogen Normal Negative mg/dL Urine Leukocyte Esterase 1+ Negative /uL Urine RBC 1 0 - 4 /hpf Urine Microscopic WBC 4 0-5 /HPF Urine Squamous Epithelial Cells Few <5 /hpf Urine Bacteria None seen None Seen /hpf Urine Glucose Normal Normal mg/dL CHEST RADIOGRAPH FINDINGS: Lines and Tubes: None Lungs: Left basilar subsegmental atelectasis. Pleura: No effusion. No pneumothorax. Cardiomediastinal contours: Unremarkable Bones: Unremarkable IMPRESSION: Left basilar subsegmental atelectasis. Left lower extremity venous duplex Findings: Duplex Doppler evaluation of the deep venous system of the left lower extremity from the common femoral vein to the popliteal vein including color Doppler and spectral/pulsed waveform analysis was performed. Occluded left common femoral vein. There is compressibility/patency of the great saphenous vein at the proximal thigh. The femoral vein demonstrates appropriate compressibility and waveform variability. The deep femoral vein demonstrates appropriate compressibility and waveform variability. The popliteal vein demonstrates appropriate compressibility and waveform variability. There is normal compressibility at the tibioperoneal trunk. Impression: DVT left common femoral vein. Axial CTA images of the chest FINDINGS: Pulmonary arteries: No evidence of pulmonary embolism. Main pulmonary artery is dilated up to 4 cm, may be seen with pulmonary arterial hypertension in the appropriate clinical setting. Aorta: No aneurysm or dissection. Moderate atherosclerotic calcification. Cardiac: Heart size is within normal limits. Marked coronary artery calcification. Mediastinum/jc: Mildly prominent mediastinal lymph nodes, with the largest measuring up to 1 cm in short axis of the AP window, likely reactive lymph nodes. Lungs: Atelectasis in the lower lobes bilaterally. Additional scattered subsegmental areas of atelectasis are seen patchy opacities in the left lower lobe, may be infectious or inflammatory in nature. Chest wall: No mass or other abnormality. Upper abdomen: Postsurgical changes of left nephrectomy partially visualized. Bones: No acute fracture or suspicious intraosseous lesions. IMPRESSION: 1. Dense of pulmonary embolism. 2. Dilated main pulmonary artery, may be seen with pulmonary arterial hypertension in the appropriate clinical setting. 3. Atelectasis in the lower lobes with patchy opacities in the left lower lobe, possible superimposed infectious / inflammatory etiology. Correlate with clinical findings. 4. Additional findings as detailed above. Assessment/Plan Assessment/Plan Assessment: Left leg DVT, Diabetes, Hypertension, Hyperlipidemia, COPD, Plan: Admit to Med-Surg, Radiology consult, Blood thinner, PT/PTT, Home medications reconciled, Plan discussed with: Patient, Other (Granddaughter) My Orders Orders - ANGELICA KUMAR Procedure Category Date Status Time Admit ADMIT 09/03/24 Transmitted 14:27 Code Status CODE 09/03/24 Transmitted 14:27 Ondansetron Hcl PHA 09/03/24 Logged (Zofran) 14:30 Docusate Sodium PHA 09/03/24 Logged Capsule (Colace 14:30 Complete Blood Count LAB 09/04/24 Verified 04:00 Comprehensive LAB 09/04/24 Verified Metabolic Panel 04:00 Condition: Serious AKIRA 09/03/24 In Process 14:27 * Radiologist Consult CONS 09/03/24 Transmitted 14:27 Date of Service: September 03, 2024 Billing Provider: ANGELICA KUMAR Common Visit Codes: [id number] INP/OBS CARE (MOD) ANGELICA KUMAR September 03, 2024 14:53
[2024-09-03 15:51] LABS: INR 1.01 (0.9-1.15); Partial Thromboplastin Time 28.1 SEC (24.5-34.5); Prothrombin Time 10.7 sec (9.3-11.8)
[2024-09-03 16:43] VITALS: BP 121/64; PULSE 67; RESP 18; TEMP 97.7; O2SAT 92; O2SAT 94
[2024-09-03 17:00] VITALS: BP 121/64; PULSE 67; RESP 18; TEMP 97.7; O2SAT 94
[2024-09-03 20:00] VITALS: PULSE 70; RESP 17; O2SAT 93
[2024-09-03 21:00] VITALS: BP 140/67; PULSE 70; RESP 17; TEMP 98.3; O2SAT 93
[2024-09-03] MEDS: METHOCARBAMOL 500 MG TAB PO SCH (22:00)
[2024-09-03] MEDS: ENOXAPARIN SOD 100 MG/1 ML SYRINGE SC SCH (22:00)
[2024-09-03] MEDS: traZODone HCL 50 MG TAB PO SCH (22:58)
[2024-09-03] MEDS: lamoTRIgine 100 MG TAB PO SCH (22:59)
[2024-09-03] MEDS: GABAPENTIN 400 MG CAP PO SCH (22:59)
[2024-09-03] MEDS: OXYCODONE W/ ACETAMINOPHEN 5/325MG TABLET PO ONE (23:04)
[2024-09-04] VITALS (9 sets, daily range): BP systolic 112–136; BP diastolic 57–69; PULSE 59–73; RESP 16–18; TEMP 97.7–98.7; O2SAT 94–100
[2024-09-04 06:09] LABS: Basophils # (auto) 0 10 ^3/uL (0-0.2); Basophils % (auto) 0.6 % (0.0-2.0); Eosinophils # (auto) 0.1 10 ^3/uL (0-0.8); Hematocrit 39.3 % (36.0-46.0); Hemoglobin 13.2 g/dL (12.2-16.2); Lymphocytes # (auto) 2.6 10 ^3/uL (0.4-5.4); Mean Corpuscular Hemoglobin 30.9 pg (28.0-32.0); Mean Corpuscular Hgb Conc. 33.6 g/dL (32.0-36.0); Mean Corpuscular Volume 91.9 fL (80.0-100.0); Monocytes # (auto) 0.6 10 ^3/uL (0-1.3); Monocytes % (auto) 9.5 % (0.0-12.0); Neutrophils % (auto) 46.9 % (37.0-80.0); Platelet Count (auto) 189 10^3/uL (140-450); Red Blood Cells 4.27 10^6/uL (4.0-5.20); Red Cell Distribution Width 13.5 % (11.8-14.3); White Blood Cell 6.4 10^3/uL (4.4-10.8)
[2024-09-04] MEDS: LEVOTHYROXINE SODIUM 100 MCG TAB PO SCH (06:11)
[2024-09-04] MEDS: LEVOTHYROXINE SODIUM 25 MCG TAB PO SCH (06:11)
[2024-09-04 06:29] LABS: Alanine Aminotransferase 12 U/L (7-40); Albumin 3.7 g/dL (3.2-4.8); Alkaline Phosphatase 56 U/L (46-116); Anion Gap 7 (5-15); Aspartate Aminotransferase 14 U/L (13-40); BUN/Creatinine Ratio 12.9 (10.0-20.0); Blood Urea Nitrogen 12 mg/dL (9-23); Calcium 9.9 mg/dL (8.7-10.4); Chloride 105 mmol/L (98-107); Glucose 80 mg/dL (74-106); Sodium 144 mmol/L (136-145); Total Protein 5.7 g/dL (5.7-8.2)
[2024-09-04 06:30] LABS: Bilirubin, Total 0.3 mg/dL (0.2-1.0)
[2024-09-04 06:36] LABS: Carbon Dioxide 32 mmol/L (20-31)
[2024-09-04] MEDS ORDERED: PATIENTS OWN MEDICATION (Levothyroxine Sodium 125 MCG) PO SCH (07:00)
[2024-09-04] MEDS ORDERED: BUPRENORPHINE 5 MCG/HR TOP SCH (07:45)
[2024-09-04] MEDS: MONTELUKAST SODIUM 10 MG TAB PO SCH (09:59)
[2024-09-04] MEDS: amLODIPine BESYLATE 5 MG TAB PO SCH (10:00)
[2024-09-04] MEDS: ATORVASTATIN 20 MG TAB PO SCH (10:00)
[2024-09-04] MEDS: LISINOPRIL 5 MG TAB PO SCH (10:01)
--- NOTE | 2024-09-04 11:59 | DVHPN2 ---
Subjective The patient is seen and examined at bedside. Complain of leg pain. Reviewed: Care Plan, H&P, Labs, Medications, Previous Orders, Radiology Changes from previous H/P or p: No Changes Eyes: No Pain, No Vision change, No Conjunctivae inflammation, No Eyelid inflammation, No Other, No Redness ENT: No Ear pain, No Ear discharge, No Nose pain, No Nose discharge, No Nose congestion, No Mouth pain, No Mouth swelling, No Throat pain, No Throat swelling, No Other Cardiovascular: No Chest Pain, No Palpitations, No Orthopnea, No Paroxysmal Noc. Dyspnea, No Edema, No Lt Headedness, No Other Respiratory: No Cough, No Dry, No Shortness of breath, No SOB with excertion, No Wheezing, No Hemoptysis, No Pleuritic Pain, No Sputum, No Other Gastrointestinal: No Nausea, No Vomiting, No Abdominal Pain, No Diarrhea, No Constipation, No Melena, No Hematochezia, No Other Genitourinary: No Dysuria, No Frequency, No Incontinence, No Hematuria, No Retention, No Other Musculoskeletal: No other, No neck pain, No shoulder pain, No arm pain, No back pain, No hand pain; leg pain (left foot edema and pain); No foot pain Skin: No Rash, No Lesions, No Jaundice, No Bruising, No Other Objective Vitals Vital Signs Date Time Temp Pulse Resp B/P (MAP) Pulse Ox O2 Delivery O2 Flow Rate FiO2 09/04/24 10:01 131/61 09/04/24 08:40 98.7 68 16 96 98.7 09/03/24 20:00 Nasal Cannula* 2 28 Intake/Output Intake and Output 09/04/24 07:00 Intake Total 725 ml Balance 725 ml Intake Oral 725 ml # Voids 2 General Appearance: Alert, Oriented X3, Cooperative, No acute distress HEENT: Atraumatic, PERRLA, EOMI, Mucous membr. moist/pink Neck: Supple Lungs: Clear to auscultation, Normal air movement Cardiovascular: Regular rate, Normal S1, Normal S2, No murmurs, Gallops, Rubs Abdomen: Normal bowel sounds, Soft, No tenderness Neuro: Cranial nerves 3-12 NL Psych/Mental Status: Mental status NL Medications Current Medications Medications Dose Ordered Sig/[place] Route Start Time Stop Time Status Last Admin Dose Admin Ondansetron HCl 4 mg Q4HP PRN IV 09/03/24 14:30 Docusate Sodium 100 mg BIDPRN PRN PO 09/03/24 14:30 Amlodipine Besylate 2.5 mg DAILY PO 09/04/24 10:00 09/04/24 10:00 2.5 MG Atorvastatin Calcium 20 mg DAILY PO 09/04/24 10:00 09/04/24 10:00 20 MG Montelukast Sodium 10 mg DAILY PO 09/04/24 10:00 09/04/24 09:59 10 MG Trazodone HCl 100 mg HS PO 09/03/24 22:00 09/03/24 22:58 100 MG Patient Own Medication 1 patch QWEEKLY TOP 09/04/24 07:45 Gabapentin 400 mg BID PO 09/03/24 22:00 09/04/24 10:00 400 MG Lisinopril 10 mg DAILY PO 09/04/24 10:00 09/04/24 10:01 10 MG Methocarbamol 750 mg BID PO 09/03/24 22:00 Patient Own Medication 2 tab BID PO 09/03/24 22:00 Lamotrigine 150 mg Q12HR PO 09/03/24 22:00 09/04/24 09:59 150 MG Enoxaparin Sodium 80 mg Q12HR SC 09/03/24 22:00 09/04/24 10:02 80 MG Levothyroxine Sodium 100 mcg QAM PO 09/04/24 07:00 09/04/24 06:11 100 MCG Levothyroxine Sodium 25 mcg QAM PO 09/04/24 07:00 09/04/24 06:11 25 MCG Oxycodone/ Acetaminophen 2 tab Q6HP PRN PO 09/04/24 11:45 UNV Laboratory Results Laboratory Tests 09/04/24 05:24 Chemistry Test 09/04/24 05:24 Albumin 3.7 g/dL (3.2-4.8) Calcium Level 9.9 mg/dL (8.7-10.4) Total Protein 5.7 g/dL (5.7-8.2) LFT Test 09/04/24 05:24 Alanine Aminotransferase (ALT) 12 U/L (7-40) Alkaline Phosphatase 56 U/L (46-116) Aspartate Amino Transferase (AST) 14 U/L (13-40) Total Bilirubin 0.3 mg/dL (0.2-1.0) Urinalysis Test 09/03/24 11:15 Urine Color Light-yellow (Yellow) Urine Clarity Clear (Clear) Urine pH 5.5 (5.0-9.0) Urine Specific [place] 1.015 (1.001-1.035) Urine Protein Negative (Negative) Urine Ketones Negative (Negative) Urine Blood Negative /uL (Negative) Urine Nitrite Negative (Negative) Urine Bilirubin Negative (Negative) Urine Urobilinogen Normal mg/dL (Negative) Urine Leukocyte Esterase 1+ /uL (Negative) Urine RBC 1 /hpf (0 - 4) Urine Microscopic WBC 4 /HPF (0-5) Urine Squamous Epithelial Cells Few /hpf (<5) Urine Bacteria None seen /hpf (None Seen) Urine Glucose Normal mg/dL (Normal) Labs and/or images reviewed: Labs reviewed by me Assessment/Plan Assessment/Plan Left leg DVT, Diabetes, Hypertension, Hyperlipidemia, COPD, Continuing current management. Per intervention radiologist patient might need IVC filter for her DVT. We will place order Continuing pain medication Continuing with Lovenox injection 1 milligram/kilogram subQ q.12 hours This medical document was created using an electronic medical record system with [employer] direct computerized dictation system. Although this document has been carefully reviewed, there may still be some phonetic and typographical errors. These areas are purely typographical due to imperfections of the software programs, and do not reflect any compromise in the patient's medical care. Plan discussed with: Patient My Orders Orders - DANIELLA BEY MD Procedure Category Date Status Time Oxycodone W/ Acet PHA 09/04/24 Logged 5/325mg Tab (Percocet 11:45 Date of Service: September 04, 2024 Billing Provider: DANIELLA BEY MD Common Visit Codes: [id number] INP/OBS CARE(HIGH) DANIELLA BEY MD September 04, 2024 11:59
[2024-09-04] MEDS: ONDANSETRON HCL 4 MG/2 ML VIAL IV PRN (13:21)
[2024-09-04] MEDS: OXYCODONE W/ ACETAMINOPHEN 5/325MG TABLET PO PRN (13:21)
[2024-09-04] MEDS: ENOXAPARIN SOD 80 MG/0.8ML SYRINGE SC SCH (21:35)
[2024-09-05] VITALS (18 sets, daily range): BP systolic 102–160; BP diastolic 46–77; PULSE 61–78; RESP 13–19; TEMP 97.6–98.4; O2SAT 94–97
[2024-09-05] MEDS: fentaNYL CITRATE 100 MCG/2 ML VL ONE (09:36)
[2024-09-05] MEDS: LIDOCAINE 2%HCL (LOCAL ANESTH.) INJ 20ML MDV ONE (09:36)
[2024-09-05] MEDS: MIDAZOLAM HCL 2MG/2ML 2ml VIAL (1mg/ml) ONE (09:36)
[2024-09-05] MEDS: IODIXANOL 320MG/ML 100ML BTL IV ONE (09:40)
--- NOTE | 2024-09-05 10:37 | DVH ---
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 History of heart and lung disease PROCEDURE: Informed consent was obtained. The patient was placed on the fluoroscopic table in supine position. The right groin was prepped with chlorhexidine which was allowed to dry and draped in the u sual sterile fashion. Time out was performed. Following administration of 1% local lidocaine, the com mon femoral vein was accessed with a micropuncture set under ultrasound guidance, and an image docume nting patency sent to PACS. A 6 Armenian sheath placed iliac vein. A cavogram was performed and the lev el of the renal veins were identified. The catheter was exchanged for a 9.6 Armenian introducer sheath, and a Bard G2 Ghislaine/Field Venatech IVC filter was deployed in an infrarenal location. The introduce r sheath was removed and the venotomy closed with manual compression. Post-deployment image was obtai marielena. No immediate complication was identified. DAP 364 FLUOROSCOPY TIME: 1.0 minutes. CONTRAST USED: 20 mL . SEDATION: Dr. Simon Tolentino was personally responsible for the administration of moderate sedation during the procedure performed, including the use of an independent trained observer who had no other duties during the procedure. The drugs utilized were IV fentanyl and versed (see nursing log for details). The total time of supervision by the attending physician was approximately 30 minutes. FINDINGS: There is a patent single IVC visualized without intraluminal filling defect. No renal venou s anomaly is noted. Post-procedure image demonstrates good positioning of the IVC filter in an infrar enal position. IMPRESSION: Successful IVC filter placement in the infra-renal location. PLAN: Consideration should be made for removal of this retrievable filter after and if medical necess ity for caval filtration is no longer present. If we in IR are unable to contact the patient in a mirna emanuel fashion, please contact our office, and we will attempt to arrange for filter retrieval at the ea rliest convenience.
--- NOTE | 2024-09-05 12:44 | DVHPN2 ---
Subjective The patient is seen and examined at bedside. Feel little bit better. Status post IVC filter placement Reviewed: Care Plan, H&P, Labs, Medications, Previous Orders, Radiology Changes from previous H/P or p: No Changes Eyes: No Pain, No Vision change, No Conjunctivae inflammation, No Eyelid inflammation, No Other, No Redness ENT: No Ear pain, No Ear discharge, No Nose pain, No Nose discharge, No Nose congestion, No Mouth pain, No Mouth swelling, No Throat pain, No Throat swelling, No Other Cardiovascular: No Chest Pain, No Palpitations, No Orthopnea, No Paroxysmal Noc. Dyspnea, No Edema, No Lt Headedness, No Other Respiratory: No Cough, No Dry, No Shortness of breath, No SOB with excertion, No Wheezing, No Hemoptysis, No Pleuritic Pain, No Sputum, No Other Gastrointestinal: No Nausea, No Vomiting, No Abdominal Pain, No Diarrhea, No Constipation, No Melena, No Hematochezia, No Other Genitourinary: No Dysuria, No Frequency, No Incontinence, No Hematuria, No Retention, No Other Musculoskeletal: No other, No neck pain, No shoulder pain, No arm pain, No back pain, No hand pain; leg pain (left foot edema and pain); No foot pain Skin: No Rash, No Lesions, No Jaundice, No Bruising, No Other Objective Vitals Vital Signs Date Time Temp Pulse Resp B/P (MAP) Pulse Ox O2 Delivery O2 Flow Rate FiO2 09/05/24 12:10 75 17 160/75 (103) 09/05/24 09:30 98.2 95 98.2 09/05/24 08:08 Nasal Cannula* 2 28 Intake/Output Intake and Output 09/05/24 07:00 Intake Total 718 ml Balance 718 ml Intake Oral 718 ml # Voids 6 # Bowel Movements 3 General Appearance: Alert, Oriented X3, Cooperative, No acute distress HEENT: Atraumatic, PERRLA, EOMI, Mucous membr. moist/pink Neck: Supple Lungs: Clear to auscultation, Normal air movement Cardiovascular: Regular rate, Normal S1, Normal S2, No murmurs, Gallops, Rubs Abdomen: Normal bowel sounds, Soft, No tenderness Neuro: Cranial nerves 3-12 NL Psych/Mental Status: Mental status NL Medications Current Medications Medications Dose Ordered Sig/[place] Route Start Time Stop Time Status Last Admin Dose Admin Ondansetron HCl 4 mg Q4HP PRN IV 09/03/24 14:30 09/04/24 13:21 4 MG Docusate Sodium 100 mg BIDPRN PRN PO 09/03/24 14:30 Amlodipine Besylate 2.5 mg DAILY PO 09/04/24 10:00 09/04/24 10:00 2.5 MG Atorvastatin Calcium 20 mg DAILY PO 09/04/24 10:00 09/04/24 10:00 20 MG Montelukast Sodium 10 mg DAILY PO 09/04/24 10:00 09/04/24 09:59 10 MG Trazodone HCl 100 mg HS PO 09/03/24 22:00 09/04/24 21:33 100 MG Patient Own Medication 1 patch QWEEKLY TOP 09/04/24 07:45 Gabapentin 400 mg BID PO 09/03/24 22:00 09/04/24 21:34 400 MG Lisinopril 10 mg DAILY PO 09/04/24 10:00 09/04/24 10:01 10 MG Methocarbamol 750 mg BID PO 09/03/24 22:00 09/04/24 21:39 750 MG Patient Own Medication 2 tab BID PO 09/03/24 22:00 Lamotrigine 150 mg Q12HR PO 09/03/24 22:00 09/04/24 21:34 150 MG Levothyroxine Sodium 100 mcg QAM PO 09/04/24 07:00 09/05/24 06:04 100 MCG Levothyroxine Sodium 25 mcg QAM PO 09/04/24 07:00 09/05/24 06:04 25 MCG Oxycodone/ Acetaminophen 2 tab Q6HP PRN PO 09/04/24 11:45 09/04/24 19:46 2 TAB Enoxaparin Sodium 80 mg Q12HR SC 09/04/24 22:00 09/04/24 21:35 80 MG Laboratory Results Laboratory Tests 09/04/24 05:24 Urinalysis Test 09/03/24 11:15 Urine Color Light-yellow (Yellow) Urine Clarity Clear (Clear) Urine pH 5.5 (5.0-9.0) Urine Specific [place] 1.015 (1.001-1.035) Urine Protein Negative (Negative) Urine Ketones Negative (Negative) Urine Blood Negative /uL (Negative) Urine Nitrite Negative (Negative) Urine Bilirubin Negative (Negative) Urine Urobilinogen Normal mg/dL (Negative) Urine Leukocyte Esterase 1+ /uL (Negative) Urine RBC 1 /hpf (0 - 4) Urine Microscopic WBC 4 /HPF (0-5) Urine Squamous Epithelial Cells Few /hpf (<5) Urine Bacteria None seen /hpf (None Seen) Urine Glucose Normal mg/dL (Normal) Labs and/or images reviewed: Labs reviewed by me Assessment/Plan Assessment/Plan Left leg DVT, Diabetes, Hypertension, Hyperlipidemia, COPD, Continuing current management. Continuing with pain medication Continuing with sliding scale insulin Continuing with hypertensive medication Continuing with Lovenox 1 milligram/kilogram subQ q.12 Discharge planning with oral Eliquis. This medical document was created using an electronic medical record system with [employer] computerized dictation system. Although this document has been carefully reviewed, there may still be some phonetic and typographical errors. These areas are purely typographical due to imperfections of the software programs, and do not reflect any compromise in the patient's medical care. Plan discussed with: Patient My Orders Orders - DANIELLA BEY MD Procedure Category Date Status Time * Radiologist Consult CONS 09/05/24 Transmitted 07:17 Inferior Vena Cava XY 09/05/24 Resulted Filter 07:16 Date of Service: September 05, 2024 Billing Provider: DANIELLA BEY MD Common Visit Codes: [id number] INP/OBS CARE(HIGH) DANIELLA BEY MD September 05, 2024 12:44
[2024-09-06] VITALS (9 sets, daily range): BP systolic 109–143; BP diastolic 57–71; PULSE 62–77; RESP 16–20; TEMP 98–98.3; O2SAT 90–97
--- NOTE | 2024-09-06 14:08 | DVHPN2 ---
Subjective The patient is seen and examined at bedside. Feel little bit better. Status post IVC filter placement Reviewed: Care Plan, H&P, Labs, Medications, Previous Orders, Radiology Changes from previous H/P or p: No Changes Eyes: No Pain, No Vision change, No Conjunctivae inflammation, No Eyelid inflammation, No Other, No Redness ENT: No Ear pain, No Ear discharge, No Nose pain, No Nose discharge, No Nose congestion, No Mouth pain, No Mouth swelling, No Throat pain, No Throat swelling, No Other Cardiovascular: No Chest Pain, No Palpitations, No Orthopnea, No Paroxysmal Noc. Dyspnea, No Edema, No Lt Headedness, No Other Respiratory: No Cough, No Dry, No Shortness of breath, No SOB with excertion, No Wheezing, No Hemoptysis, No Pleuritic Pain, No Sputum, No Other Gastrointestinal: No Nausea, No Vomiting, No Abdominal Pain, No Diarrhea, No Constipation, No Melena, No Hematochezia, No Other Genitourinary: No Dysuria, No Frequency, No Incontinence, No Hematuria, No Retention, No Other Musculoskeletal: No other, No neck pain, No shoulder pain, No arm pain, No back pain, No hand pain; leg pain (left foot edema and pain); No foot pain Skin: No Rash, No Lesions, No Jaundice, No Bruising, No Other Objective Vitals Vital Signs Date Time Temp Pulse Resp B/P (MAP) Pulse Ox O2 Delivery O2 Flow Rate FiO2 09/06/24 09:32 138/57 09/06/24 09:00 98.0 74 18 90 98.0 09/06/24 08:08 Nasal Cannula* 2 28 Intake/Output Intake and Output 09/06/24 07:00 Intake Total 925 ml Balance 925 ml Intake Oral 925 ml # Voids 6 General Appearance: Alert, Oriented X3, Cooperative, No acute distress HEENT: Atraumatic, PERRLA, EOMI, Mucous membr. moist/pink Neck: Supple Lungs: Clear to auscultation, Normal air movement Cardiovascular: Regular rate, Normal S1, Normal S2, No murmurs, Gallops, Rubs Abdomen: Normal bowel sounds, Soft, No tenderness Neuro: Cranial nerves 3-12 NL Psych/Mental Status: Mental status NL Medications Current Medications Medications Dose Ordered Sig/[place] Route Start Time Stop Time Status Last Admin Dose Admin Ondansetron HCl 4 mg Q4HP PRN IV 09/03/24 14:30 09/06/24 01:16 4 MG Docusate Sodium 100 mg BIDPRN PRN PO 09/03/24 14:30 Amlodipine Besylate 2.5 mg DAILY PO 09/04/24 10:00 09/06/24 09:31 2.5 MG Atorvastatin Calcium 20 mg DAILY PO 09/04/24 10:00 09/06/24 09:28 20 MG Montelukast Sodium 10 mg DAILY PO 09/04/24 10:00 09/06/24 09:33 10 MG Trazodone HCl 100 mg HS PO 09/03/24 22:00 09/05/24 21:35 100 MG Patient Own Medication 1 patch QWEEKLY TOP 09/04/24 07:45 Gabapentin 400 mg BID PO 09/03/24 22:00 09/06/24 09:28 400 MG Lisinopril 10 mg DAILY PO 09/04/24 10:00 09/06/24 09:32 10 MG Methocarbamol 750 mg BID PO 09/03/24 22:00 09/06/24 09:29 750 MG Patient Own Medication 2 tab BID PO 09/03/24 22:00 Lamotrigine 150 mg Q12HR PO 09/03/24 22:00 09/06/24 09:29 150 MG Levothyroxine Sodium 100 mcg QAM PO 09/04/24 07:00 09/06/24 06:35 100 MCG Levothyroxine Sodium 25 mcg QAM PO 09/04/24 07:00 09/06/24 06:35 25 MCG Oxycodone/ Acetaminophen 2 tab Q6HP PRN PO 09/04/24 11:45 09/06/24 09:28 2 TAB Enoxaparin Sodium 80 mg Q12HR SC 09/04/24 22:00 09/06/24 09:27 80 MG Laboratory Results Laboratory Tests 09/04/24 05:24 Urinalysis Test 09/03/24 11:15 Urine Color Light-yellow (Yellow) Urine Clarity Clear (Clear) Urine pH 5.5 (5.0-9.0) Urine Specific [place] 1.015 (1.001-1.035) Urine Protein Negative (Negative) Urine Ketones Negative (Negative) Urine Blood Negative /uL (Negative) Urine Nitrite Negative (Negative) Urine Bilirubin Negative (Negative) Urine Urobilinogen Normal mg/dL (Negative) Urine Leukocyte Esterase 1+ /uL (Negative) Urine RBC 1 /hpf (0 - 4) Urine Microscopic WBC 4 /HPF (0-5) Urine Squamous Epithelial Cells Few /hpf (<5) Urine Bacteria None seen /hpf (None Seen) Urine Glucose Normal mg/dL (Normal) Labs and/or images reviewed: Labs reviewed by me Assessment/Plan Assessment/Plan Left leg DVT, Diabetes, Hypertension, Hyperlipidemia, COPD, Continuing current management. Continuing with pain medication Continuing with sliding scale insulin Continuing with hypertensive medication Continuing with Lovenox 1 milligram/kilogram subQ q.12 Discharge planning with oral Eliquis. This medical document was created using an electronic medical record system with [employer] direct computerized dictation system. Although this document has been carefully reviewed, there may still be some phonetic and typographical errors. These areas are purely typographical due to imperfections of the software programs, and do not reflect any compromise in the patient's medical care. Plan discussed with: Patient, Daughter, Son Date of Service: September 06, 2024 Billing Provider: DANIELLA BEY MD Common Visit Codes: [id number] INP/OBS CARE(HIGH) DANIELLA BEY MD September 06, 2024 14:08
[2024-09-06] MEDS: APIXABAN 5 MG TAB PO SCH (22:13)
[2024-09-07] VITALS (7 sets, daily range): BP systolic 137–153; BP diastolic 62–66; PULSE 63–77; RESP 14–20; TEMP 98–98.4; O2SAT 91–98
--- NOTE | 2024-09-07 13:00 | DVHDS2 ---
Discharge Summary Date of Admission September 03, 2024 at 14:27 Date of Discharge: September 07, 2024 Admitting Diagnosis Left leg DVT, Diabetes, Hypertension, Hyperlipidemia, COPD, Labs/Diagnostic Data: Laboratory Results Test 09/04/24 05:24 09/03/24 15:18 09/03/24 11:55 09/03/24 11:15 White Blood Count 6.4 10^3/uL (4.4-10.8) Red Blood Count 4.27 10^6/uL (4.0-5.20) Hemoglobin 13.2 g/dL (12.2-16.2) Hematocrit 39.3 % (36.0-46.0) Mean Corpuscular Volume 91.9 fL (80.0-100.0) Mean Corpuscular Hemoglobin 30.9 pg (28.0-32.0) Mean Corpuscular Hemoglobin Concent 33.6 g/dL (32.0-36.0) Red Cell Distribution Width 13.5 % (11.8-14.3) Platelet Count 189 10^3/uL (140-450) Mean Platelet Volume 8.8 fL (6.9-10.8) Neutrophils (%) (Auto) 46.9 % (37.0-80.0) Lymphocytes (%) (Auto) 41.0 % (10.0-50.0) Monocytes (%) (Auto) 9.5 % (0.0-12.0) Eosinophils (%) (Auto) 2.0 % (0.0-7.0) Basophils (%) (Auto) 0.6 % (0.0-2.0) Neutrophils # (Auto) 3.0 10 ^3/uL (1.6-8.6) Lymphocytes # (Auto) 2.6 10 ^3/uL (0.4-5.4) Monocytes # (Auto) 0.6 10 ^3/uL (0-1.3) Eosinophils # (Auto) 0.1 10 ^3/uL (0-0.8) Basophils # (Auto) 0 10 ^3/uL (0-0.2) Nucleated Red Blood Cells 0.0 % Sodium Level 144 mmol/L (136-145) Potassium Level 4.0 mmol/L (3.5-5.1) Chloride Level 105 mmol/L (98-107) Carbon Dioxide Level 32 mmol/L (20-31) Anion Gap 7 (5-15) Blood Urea Nitrogen 12 mg/dL (9-23) Creatinine 0.93 mg/dL (0.550-1.02) Glomerular Filtration Rate Calc 65 mL/min (>90) BUN/Creatinine Ratio 12.9 (10.0-20.0) Serum Glucose 80 mg/dL (74-106) Calcium Level 9.9 mg/dL (8.7-10.4) Total Bilirubin 0.3 mg/dL (0.2-1.0) Aspartate Amino Transferase (AST) 14 U/L (13-40) Alanine Aminotransferase (ALT) 12 U/L (7-40) Alkaline Phosphatase 56 U/L (46-116) Total Protein 5.7 g/dL (5.7-8.2) Albumin 3.7 g/dL (3.2-4.8) Troponin I High Sensitivity 5 ng/L (</=34) Erythrocyte Sedimentation Rate 8 mm/hr (0-20) Prothrombin Time 10.7 sec (9.3-11.8) Prothrombin Time INR 1.01 (0.9-1.15) Activated Partial Thromboplast Time 28.1 SEC (24.5-34.5) Lactic Acid Level 0.5 mmol/L (0.4-2.0) C-Reactive Protein High Sensitivity 0.46 mg/dL (<1.0) B-Type Natriuretic Peptide 94.56 pg/mL (0-100) Urine Color Light-yellow (Yellow) Urine Clarity Clear (Clear) Urine pH 5.5 (5.0-9.0) Urine Specific [place] 1.015 (1.001-1.035) Urine Protein Negative (Negative) Urine Ketones Negative (Negative) Urine Blood Negative /uL (Negative) Urine Nitrite Negative (Negative) Urine Bilirubin Negative (Negative) Urine Urobilinogen Normal mg/dL (Negative) Urine Leukocyte Esterase 1+ /uL (Negative) Urine RBC 1 /hpf (0 - 4) Urine Microscopic WBC 4 /HPF (0-5) Urine Squamous Epithelial Cells Few /hpf (<5) Urine Bacteria None seen /hpf (None Seen) Urine Glucose Normal mg/dL (Normal) Other Laboratory Tests 09/04/24 05:24 Brief Hx & Hospital Course: This is a 73 years old female with past medical history of COPD, diabetes, hypertension, hyperlipidemia and knee repair with DVT after knee surgery, come to emergency department because her left foot is swelling. The patient noticed the swelling about two days prior to coming to the hospital. The pain is worsening so she decided to come to hospital for further evaluation. She stated that about three years ago she was having a knee surgery and end up with a DVT and pulmonary embolism. She was on blood thinner for six months and then she was taking off the medication by her primary care physician. This time the patient had ultrasound lower extremity done and it showed DVT of the left femoral vein. Subsequently patient had a CT angio done which showed: No evidence of pulmonary embolism. Dilated main pulmonary artery, may be seen with pulmonary arterial hypertension in the appropriate clinical setting. Atelectasis in the lower lobes with patchy opacities in the left lower lobe, possible superimposed infectious / inflammatory etiology. Correlate with clinical findings. The patient had no fever or chill. No cough, no evidence of pneumonia. No shortness a breath. The patient was treated with Lovenox 1 milligram/kilogram subQ q.12 hours. Radiologist recommend IVC filter so IVC filter was placed. Today the patient did not have any shortness of breath. Leg pain is improved. I am going to discharge her home with Eliquis starter pack with 10 mg twice per day for seven day then 5 mg twice per day. Advised the patient to follow up with primary care physician 1-2 weeks. Activity as tolerated. Diet per home diet. Advised the patient this is the 2nd DVT patient might need to be on anticoagulant medication for life. Advised the patient to discuss with her primary care physician. Activity as tolerated. Diet Per home diet, recommend low-salt low-cholesterol carb controlled diet. Physical exam: HEENT: Normocephalic atraumatic pupils equal react to light and accommodation. Extraocular muscles intact, conjunctiva pink, oropharynx moist, no thrush, no exudate. Lymphatic: No lymphadenopathy Cardiovascular exam: S1, S2 was heard. No murmurs, rubs, gallops Lung: Clear on auscultation bilaterally, no wheeze, rale, rhonchi. GI: Abdominal soft, nondistended, nontenderness, positive bowel sounds. Extremity: No crepitus, cyanosis, edema. Pedal pulses present bilateral. Full range of motion. Skin: Normal turgor, no rash. Psych: Alert, oriented x3. Neurology: No focal deficits, cranial nerve II to XII grossly intact. This medical document was created using an electronic medical record system with [employer] direct computerized dictation system. Although this document has been carefully reviewed, there may still be some phonetic and typographical errors. These areas are purely typographical due to imperfections of the software programs, and do not reflect any compromise in the patient's medical care. Condition at Discharge: Stable Final Diagnosis/Problems List Left leg extensive DVT, status post IVC filter placement Pulmonary hypertension Pneumonia possible Gram-negative/Gram-positive bacteria Diabetes mellitus type 2 Hypertension, Hyperlipidemia, COPD, History of DVT after knee surgery in the past Discharge Disposition: Home Discharge Statement: "Patient was advised to return to the ER or call 911 if any headaches, dizziness, shortness of breath, chest pain, abdominal pain, bleeding, fevers, or worsening of medical condition. Patient was counseled about treatment plan, medications, possible side effects, patientverbalized understanding. All questions were answered to the best of my ability. This discharge took greater then 30 minutes in planning, reviewing documentation, counseling the patient, and discussing with other team members." ASSESSMENT ASSESSMENT Assessment Date of Service: September 07, 2024 Billing Provider: DANIELLA BEY MD Common Visit Codes: [id number] DISCH DAY >30min DANIELLA BEY MD September 07, 2024 13:00
[2024-09-07] MEDS ORDERED: APIX5TAB PO (13:03)
[2024-09-13] MEDS ORDERED: APIXABAN 5 MG TAB PO SCH (22:00)
== END 2024-09-07 16:35 | disposition home or self-care (01) | DRG 299 ==
LOC: ER 11:01 → OVERFLOW 14:27 → TELE-WESTW 15:59
PROVIDERS: ADMIT Internal Medicine; ATTEND Internal Medicine
PROC: 06H03DZ Insertion of Intraluminal Device into Inferior Vena Cava, Percutaneous Approach (ICD-10-PCS; principal; 2024-09-05)
DX: I82.412 Acute embolism and thrombosis of left femoral vein (principal); J15.69 Pneumonia due to other Gram-negative bacteria; J15.9 Unspecified bacterial pneumonia; J96.01 Acute respiratory failure with hypoxia; J44.0 Chronic obstructive pulmonary disease with (acute) lower respiratory infection; I10 Essential (primary) hypertension; E78.5 Hyperlipidemia, unspecified; E11.9 Type 2 diabetes mellitus without complications; F41.9 Anxiety disorder, unspecified; F32.A Depression, unspecified; Z79.899 Other long term (current) drug therapy; Z90.710 Acquired absence of both cervix and uterus; I27.20 Pulmonary hypertension, unspecified; Z86.718 Personal history of other venous thrombosis and embolism
CPT/HCPCS: 36415; 37619; 71045; 71275; 76937; 80053; 81001; 83605; 83880; 84484; 85025; 85610; 85652; 85730; 86141; 93005; 93971; 99152; 99291; G0378; J2250; J2405; Q9967

== ENCOUNTER 2024-10-28 07:07 | Inpatient (IN) | payer OTHER ==
[~2024-10-28] VITALS: Ht 160 cm; Wt 75.4 kg
[~2024-10-28 07:07] MED LIST changes: +APIX5TAB PO
--- NOTE | 2024-10-28 07:23 | ED.PDOC ---
GI ASSESSMENT HPI Comments 74 y/o F, with PMHx of COPD, DM, HLD, and HTN presents to the ED for CC of GI bleed. Patient states, she has been experiencing blood in stool with associated suprapubic abdominal pain onset, this morning (10/28/24). Patient reports, to have been taking Imodium for diarrhea which had since, resolved and discontinued use d/t improved symptoms. Patient comments, that she is unsure if symptoms may be related to discontinuing Rx. Patient reports, that she currently takes Eliquis for PMHx of DVT's. Patient denies headache, dizziness, or hematochezia. No other symptoms or modifying factors present at this time. Chief Complaint: GI Bleed Time Seen by MD: 07:30 Primary Care Provider: STEVE Reviewed Notes: Nurses Notes, Medications, Allergies Allergies: Coded Allergies: NO KNOWN ALLERGIES (Unverified , 07/09/23) Home Meds Active Scripts Apixaban Base (ELIQUIS) 5 Mg Tab, 10 MG PO BID for 7 Days, #28 TAB 10MG BID X 7 DAYS THEN 5MG PO BID FOR AT LEAST 6 MONTHS FOR DVT/PE TREATMENT Prov:DANIELLA BEY MD 09/07/24 Apixaban Base (ELIQUIS) 5 Mg Tab, 5 MG PO BID, #60 TAB 5 Refills Prov:DANIELLA BEY MD 09/07/24 Reported Medications Oxycodone W/ Acetaminophen (Percocet 5/325MG) 1 Tab Tb, 1 TAB PO QID, #120 TAB 01/04/20 Trazodone HCl (Trazodone Hydrochloride) 50 Mg Tab, 100 MG PO HS, TAB 01/04/20 Omeprazole (Gnp Omeprazole) 20 Mg Tab, 2 TAB PO BID, #90 TAB 1 Refill 01/04/20 Montelukast Sodium (MONTELUKAST SODIUM) 10 Mg Tab, 1 TAB PO DAILY, #30 TAB 5 Refills 01/04/20 Methocarbamol (Methocarbamol) 750 Mg Tab, 750 MG PO BID for 30 Days, MG 01/04/20 Lisinopril (Lisinopril) 10 Mg Tab, 10 MG PO DAILY for 30 Days, MG 01/04/20 Levothyroxine Sodium (Levothyroxine Sodium) 125 Mcg Tab, 125 MCG PO QAM for 30 Days, MCG 01/04/20 Lamotrigine (Lamotrigine) 150 Mg Tab, 1 TAB PO BID, #60 TAB 1 Refill 01/04/20 Gabapentin (GABAPENTIN) 250 Mg/5 Ml [place], 400 MG PO BID, ML 01/04/20 Fluoxetine HCl (Fluoxetine) 60 Mg Tab, 30 MG PO, TAB 01/04/20 Fluticasone Propionate (Fluticasone Propionate) 0.05 % Cre, 50 MCG ISAIAS for 30 Days, MCG 01/04/20 Bupropion Hcl (Bupropion Hcl Sr) 100 Mg Tab, 100 MG PO, TAB 01/04/20 Buprenorphine (BUTRANS) 5 Mcg/Hr Dis, 1 PATCH TOP QWEEKLY, #4 PATCH 1 Refill 01/04/20 Atorvastatin Calcium (Lipitor) 20 Mg Tab, 1 TAB PO DAILY, #90 TAB 1 Refill 01/04/20 Amlodipine Besylate (Amlodipine Besylate) 5 Mg Tab, 2.5 MG PO DAILY for 30 Days, MG 01/04/20 Fluticasone-Salmeterol (Advair Diskus 250/50) 1 Puff Ih, 1 PUFF INH BID, #3 INHALER 3 Refills 01/04/20 Information Source: Patient Mode of Arrival: Wheelchair Timing: Minutes Duration: Since onset Prehospital treatment: None Quality: None Vomitus: None Stool: Blood Streaked Severity: Moderate Recent: None Recent Hx of: None Pain Location: Suprapubic Modifying Factors: Nothing Associated sign and symptoms: Abdominal Pain, Blood in Stool Past Medical History PAST MEDICAL HISTORY: COPD, DM, High Lipids, HTN Surgical History: Denies all surgeries BEHAVIORIST History: No Pertinent BEHAVIORIST History Family History Family History: Reviewed,noncontributory to illness Social History Smoker: Non-Smoker Alcohol: Denies ETOH Use Drugs: Denies Drug Use Lives In: Home Constitutional: denies: chills, diaphoresis, fatigue, fever, malaise, sweats, weakness, others EENTM: denies: blurred vision, double vision, ear bleeding, ear discharge, ear drainage, ear pain, ear ringing, eye pain, eye redness, hearing loss, mouth pain, mouth swelling, nasal discharge, nose bleeding, nose congestion, nose pain, photophobia, tearing, throat pain, throat swelling, voice changes, others Respiratory: denies: cough, hemoptysis, orthopnea, SOB at rest, shortness of breath, SOB with excertion, stridor, wheezing, others Cardiovascular: denies: chest pain, dizzy spells, diaphoresis, Dyspnea on exertion, edema, irregular heart beat, left arm pain, lightheadedness, palpitations, PND, syncope, others Gastrointestinal: reports: blood streaked bowels; denies: abdomen distended, abdominal pain, constipated, diarrhea, dysphagia, difficulty swallowing, hematemesis, melena, nausea, poor appetite, poor fluid intake, rectal bleeding, rectal pain, vomiting, others Genitourinary: denies: abnormal vagina bleeding, burning, dyspareunia, dysuria, flank pain, frequency, hematuria, incontinence, pain, , vagina discharge, urgency, others Neurological: denies: dizziness, fainting, headache, left sided numbness, left sided weakness, numbness, paresthesia, pre-existing deficit, right sided numbness, right sided weakness, seizure, speech problems, tingling, tremors, weakness, others Musculoskeletal: denies: back pain, gout, joint pain, joint swelling, muscle pain, muscle stiffness, neck pain, others Integumetry: denies: bruises, change in color, change in hair/nails, dryness, laceration, lesions, lumps, rash, wounds, others Allergic/Immunocompromised: denies: Difficulty Healing, Frequent Infections, Hives, Itching, others Hematologic/Lymphatic: denies: anemia, blood clots, easy bleeding, easy bruising, swollen glands, others Endocrine: denies: excessive hunger, excessive sweating, excessive thirst, excessive urination, flushing, intolerance to cold, intolerance to heat, unexplained weight gain, unexplained weight loss, others Psychiatric: denies: anxiety, bipolar disorder, depression, hopeless, panic disorder, schizophrenia, sleepless, suicidal, others All Other Systems: Reviewed and Negative Physical Exam General Appearance: Moderate Distress HEENT: Normal ENT Inspection, Pharynx Normal, TMs Normal Neck: Full Range of Motion, Non-Tender, Normal, Normal Inspection Respiratory: Chest Non-Tender, Lungs Clear, No Accessory Muscle Use, No Respiratory Distress, Normal Breath Sounds Cardiovascular: No Edema, No JVD, No Murmur, No Gallop, Normal Peripheral Pulses, Regular Rate/Rhythm Breast Exam: Deferred Gastrointestinal: No Organomegaly, Non Tender, No Pulsatile Mass, Normal Bowel Sounds, Soft Genitalia: Deferred Pelvic: Deferred Rectal: Deferred Extremities: No calf tenderness, Normal capillary refill, Normal inspection, Normal range of motion, Non-tender, No pedal edema Musculoskeletal : Apperance: Normal Neurologic: Alert, No Motor Deficits, No Sensory Deficits Cerebellar Function: NOT DONE Reflexes: NOT DONE Skin: Dry, Normal Color, Warm Peripheral Pulses: 3+ Radial (R), 3+ Radial (L) Lymphatic: No Adenopathy Was a procedure done? Was a procedure done?: No GI differential Dx Differential Diagnosis: Constipation, Diverticular disease, Esophagitis, Gastritis/PUD, Gastroenteritis, GI hemorrhage, Inflammatory BD X-Ray, Labs, Meds, VS Vital Signs Date Time Temp Pulse Resp B/P (MAP) Pulse Ox O2 Delivery O2 Flow Rate FiO2 10/28/24 08:01 78 17 95 Room Air 10/28/24 08:01 97.7 78 17 127/58 (81) 95 97.7 10/28/24 07:22 99.0 80 16 96/64 (75) 98 99.0 Lab Test 10/28/24 07:48 10/28/24 07:20 Range/Units White Blood Count 8.8 4.4-10.8 10^3/uL Red Blood Count 4.39 4.0-5.20 10^6/uL Hemoglobin 13.2 12.2-16.2 g/dL Hematocrit 39.6 36.0-46.0 % Mean Corpuscular Volume 90.4 80.0-100.0 fL Mean Corpuscular Hemoglobin 30.2 28.0-32.0 pg Mean Corpuscular Hemoglobin Concent 33.4 32.0-36.0 g/dL Red Cell Distribution Width 13.4 11.8-14.3 % Platelet Count 214 140-450 10^3/uL Mean Platelet Volume 9.2 6.9-10.8 fL Neutrophils (%) (Auto) 57.2 37.0-80.0 % Lymphocytes (%) (Auto) 30.6 10.0-50.0 % Monocytes (%) (Auto) 9.0 0.0-12.0 % Eosinophils (%) (Auto) 2.6 0.0-7.0 % Basophils (%) (Auto) 0.6 0.0-2.0 % Neutrophils # (Auto) 5.0 1.6-8.6 10 ^3/uL Lymphocytes # (Auto) 2.7 0.4-5.4 10 ^3/uL Monocytes # (Auto) 0.8 0-1.3 10 ^3/uL Eosinophils # (Auto) 0.2 0-0.8 10 ^3/uL Basophils # (Auto) 0.1 0-0.2 10 ^3/uL Nucleated Red Blood Cells 0.0 % Prothrombin Time 10.9 9.3-11.8 sec Prothrombin Time INR 1.03 0.9-1.15 Activated Partial Thromboplast Time 26.6 24.5-34.5 SEC Sodium Level 142 136-145 mmol/L Potassium Level 3.8 3.5-5.1 mmol/L Chloride Level 103 98-107 mmol/L Carbon Dioxide Level 31 20-31 mmol/L Anion Gap 8 5-15 Blood Urea Nitrogen 17 9-23 mg/dL Creatinine 1.16 H 0.550-1.02 mg/dL Glomerular Filtration Rate Calc 49 >90 mL/min BUN/Creatinine Ratio 14.7 10.0-20.0 Serum Glucose 122 H 74-106 mg/dL Calcium Level 10.5 H 8.7-10.4 mg/dL Urine Color Light-yellow Yellow Urine Clarity Clear Clear Urine pH 5.5 5.0-9.0 Urine Specific [place] 1.015 1.001-1.035 Urine Protein Negative Negative Urine Ketones Negative Negative Urine Blood 3+ H Negative /uL Urine Nitrite Negative Negative Urine Bilirubin Negative Negative Urine Urobilinogen Normal Negative mg/dL Urine Leukocyte Esterase 1+ Negative /uL Urine RBC 35 0 - 4 /hpf Urine Microscopic WBC 9 H 0-5 /HPF Urine Squamous Epithelial Cells Few <5 /hpf Urine Bacteria None seen None Seen /hpf Urine Glucose Normal Normal mg/dL [address] [address] Ph: [phone] DIAGNOSTIC IMAGING Diagnostic Imaging Report : [id number] Signed PATIENT: ANNALISA WEBERAACCT: [id number] UNIT: [id number] : 1950 LOC: ER ROOM / BED: / AGE / SEX: 74 / F ADM STATUS: REG ER SERVICE 0813 ORDERING PHYSICIAN: JERRICA MCGEE MD PROCEDURE(s): ABPL - CT AB PEL WO CON-NO ORAL OR IV REASON: gibleed ORDER NUMBER(s): [id number], ACCESSION NUMBER(s): [id number] Exam: CT CT AB PEL WO CON-NO ORAL OR IV History: gibleed Comparison Study: None Technique: Multidetector spiral CT of the abdomen was performed from lung bases to pubic symphysis. Imaging was performed without IV contrast. Axial, coronal and sagittal multiplanar reformats were obtained from the axial data set by the technologist. Radiation Dose : 1. Abdomen/Pelvis: CTDIvol 13 mGy, DLP 566 mGy*cm. Findings: Evaluation of solid organs is limited due to lack of intravenous contrast use. Lung Bases: Cardiomegaly. Coronary artery calcifications. Vascular calcifications of the aorta. Liver: The liver is normal in size. No focal lesions. Gallbladder and Biliary Tree: Unremarkable Spleen: Unremarkable Pancreas: The pancreas is grossly normal in appearance. Adrenal Glands: Unremarkable Kidneys: Right kidney is unremarkable. Left nephrectomy. Bladder: Grossly unremarkable for degree of distention. Bowel: The stomach is grossly normal in appearance. Moderate volume colonic stool. The appendix is not visualized; however, no secondary findings of acute appendicitis identified. Ascites: Absent Lymphadenopathy: No mesenteric, retroperitoneal or periportal lymphadenopathy. Abdominal Wall and Mesentery: Unremarkable. Vasculature: IVC filter in-situ. The visualized abdominal aorta is normal in size and caliber. There is extensive atherosclerotic calcification of the aorta and its branches. Evaluation of abdominal and pelvic vessels is limited due to lack of intravenous contrast. Pelvic Organs: The uterus is surgically absent. Musculoskeletal: No aggressive focal bony lesions, acute fractures or dislocation. Right hip surgical hardware. Advanced multilevel degenerative changes of the spine. Posterior lumbar spinal fixation hardware. IMPRESSION: Moderate volume colonic stool. ATED BY: BAO MCCORD MD DICTATED DATE/TIME: 10/28/24 0850 SIGNED BY: BAO MCCORD MD SIGNED DATE/TIME: 10/28/24 0850 CC: Patient alert. Vitals stable. Answering questions. Good skin color. Complaining of bright red blood. Abdomen is soft. She is on blood thinner. Reviewed her previous visit. Urinalysis shows UTI. Establish intravenous access. Was given Rocephin. Explained to the patient. Time of 1ST Reevaluation: 08:00 Reevaluation 1ST: Unchanged Patient Education/Counseling: Diagnosis, Treatment Family Education/Counseling: Diagnosis, Treatment SEPSIS Sepsis Screen Physician Orders Ct Ab Pel Wo Con-No Oral Or Iv (10/28/24 08:13) Vital Signs Date Time Temp Pulse Resp B/P (MAP) Pulse Ox O2 Delivery O2 Flow Rate FiO2 10/28/24 08:01 78 17 95 Room Air 10/28/24 08:01 97.7 78 17 127/58 (81) 95 97.7 10/28/24 07:22 99.0 80 16 96/64 (75) 98 99.0 Laboratory Tests Test 10/28/24 07:48 White Blood Count 8.8 10^3/uL (4.4-10.8) Departure 1 Departure Time of Disposition: 08:11 Impression: Primary Impression: GI bleed Qualified Codes: K92.2 - Gastrointestinal hemorrhage, unspecified Additional Impression: Sepsis due to urinary tract infection Disposition: ADMITTED INPATIENT Admit to: Med Surg Condition: Guarded Critical Care Note Critical Care Time?: No Stability Stability form required: No Heart Score Heart Score: Heart Score Response (Comments) Value History N/A 0 EKG N/A 0 Age N/A 0 Risk Factors N/A 0 Troponin N/A 0 Total 0 I personally scribed for JERRICA MCGEE MD ([email or web address]) on 10/28/24 at 07:23. Electronically submitted by Viviana Hannon ([email or web address]). I personally scribed for JERRICA MCGEE MD ([email or web address]) on 10/28/24 at 07:42. Electronically submitted by Viviana Hannon ([email or web address]). I personally scribed for JERRCIA MCGEE MD ([email or web address]) on 10/28/24 at 09:06. Electronically submitted by Viviana Hannon ([email or web address]). JERRICA MCGEE MD Oct 28, 2024 07:23
[2024-10-28 07:57] LABS: Urine Protein, UAD Negative (Negative)
[2024-10-28 08:06] LABS: Hematocrit 39.6 % (36.0-46.0); Hemoglobin 13.2 g/dL (12.2-16.2); Mean Corpuscular Hemoglobin 30.2 pg (28.0-32.0); Mean Corpuscular Volume 90.4 fL (80.0-100.0); Nucleated Red Blood Cells % 0.0 %
[2024-10-28 08:16] LABS: Anion Gap 8 (5-15); Carbon Dioxide 31 mmol/L (20-31); Chloride 103 mmol/L (98-107); Potassium 3.8 mmol/L (3.5-5.1); Sodium 142 mmol/L (136-145)
[2024-10-28 08:19] LABS: Calcium 10.5 mg/dL (8.7-10.4)
[2024-10-28 08:22] LABS: BUN/Creatinine Ratio 14.7 (10.0-20.0); Blood Urea Nitrogen 17 mg/dL (9-23); Glucose 122 mg/dL (74-106)
[2024-10-28 08:28] LABS: INR 1.03 (0.9-1.15); Partial Thromboplastin Time 26.6 SEC (24.5-34.5); Prothrombin Time 10.9 sec (9.3-11.8)
--- NOTE | 2024-10-28 08:52 | DVH ---
Exam: CT CT AB PEL WO CON-NO ORAL OR IV History: gibleed Comparison Study: None Technique: Multidetector spiral CT of the abdomen was performed from lung bases to pubic symphysis. I maging was performed without IV contrast. Axial, coronal and sagittal multiplanar reformats were obta ined from the axial data set by the technologist. Radiation Dose : 1. Abdomen/Pelvis: CTDIvol 13 mGy, DLP 566 mGy*cm. Findings: Evaluation of solid organs is limited due to lack of intravenous contrast use. Lung Bases: Cardiomegaly. Coronary artery calcifications. Vascular calcifications of the aorta. Liver: The liver is normal in size. No focal lesions. Gallbladder and Biliary Tree: Unremarkable Spleen: Unremarkable Pancreas: The pancreas is grossly normal in appearance. Adrenal Glands: Unremarkable Kidneys: Right kidney is unremarkable. Left nephrectomy. Bladder: Grossly unremarkable for degree of distention. Bowel: The stomach is grossly normal in appearance. Moderate volume colonic stool. The appendix is no t visualized; however, no secondary findings of acute appendicitis identified. Ascites: Absent Lymphadenopathy: No mesenteric, retroperitoneal or periportal lymphadenopathy. Abdominal Wall and Mesentery: Unremarkable. Vasculature: IVC filter in-situ. The visualized abdominal aorta is normal in size and caliber. There is extensive atherosclerotic calcification of the aorta and its branches. Evaluation of abdominal an d pelvic vessels is limited due to lack of intravenous contrast. Pelvic Organs: The uterus is surgically absent. Musculoskeletal: No aggressive focal bony lesions, acute fractures or dislocation. Right hip surgical hardware. Advanced multilevel degenerative changes of the spine. Posterior lumbar spinal fixation huang rdware. IMPRESSION: Moderate volume colonic stool.
[2024-10-28] MEDS ORDERED: DOCUSATE SOD 100 MG CAP PO PRN (11:00)
[2024-10-28] MEDS ORDERED: ACETAMINOPHEN 325 MG TAB PO PRN (11:00)
--- NOTE | 2024-10-28 11:23 | DVHHP2 ---
History of Present Illness Reason for Visit: Blood in stool History of Present Illness Hollie Higgins is a 74-year-old female with past medical history of hypertension, DVT on Eliquis, and COPD who came to the hospital for blood in her stool. Patient states she has been having diarrhea for weeks, she takes Imodium frequently. Yesterday, her bowel movements became more normal to her so she did not take the Imodium. This morning when she went to the bathroom she states the toilet was full of blood prompting her to come to the hospital this morning. She also states that she did have a more normal bowel movement this morning since being in the ER. She has concerns about her bowel because her father of Crohn's disease. Cardiovascular: HTN Pulmonary: COPD Heme/Onc: Other (DVT left leg) Past Surgical History: Cholecystectomy, Hysterectomy, Other (left nephrectomy, back x 3, right hip), Tonsillectomy Smoke: No ALCOHOL: none Drugs: None Lives: with Family Domestic Violence: Neg Review of Systems Constitutional: No: Fever, Chills, Sweats, Weakness, Malaise, Other Eyes: No: Pain, Vision change, Conjunctivae inflammation, Eyelid inflammation, Other, Redness ENT: No: Ear pain, Ear discharge, Nose pain, Nose discharge, Nose congestion, Mouth pain, Mouth swelling, Throat pain, Throat swelling, Other Respiratory: No: Cough, Dry, Shortness of breath, SOB with excertion, Wheezing, Hemoptysis, Pleuritic Pain, Sputum, Wheezing, Other Cardiovascular: No: Chest Pain, Palpitations, Orthopnea, Paroxysmal Noc. Dyspnea, Edema, Lt Headedness, Other Gastrointestinal: Abdominal Pain, Diarrhea, Constipation, Melena; No: Nausea, Vomiting, Hematochezia, Other Genitourinary: No Dysuria, No Frequency, No Incontinence, No Hematuria, No Retention, No Other Musculoskeletal: No: other, neck pain, shoulder pain, arm pain, back pain, hand pain, leg pain, foot pain Skin: No: Rash, Lesions, Jaundice, Bruising, Other Neurological: No: Weakness, Numbness, Incoordination, Change in speech, Confusion, Seizures, Other Allergies: Coded Allergies: NO KNOWN ALLERGIES (Unverified , 07/09/23) Exam Vital Signs Vital Signs Date Time Temp Pulse Resp B/P (MAP) Pulse Ox O2 Delivery O2 Flow Rate FiO2 7/1/25 08:01 78 17 95 Room Air 10/28/24 08:01 97.7 127/58 (81) 97.7 General Appearance: Alert, Oriented X3, Cooperative, mild distress HEENT: Atraumatic, PERRLA, Mucous membr. moist/pink Respiratory: Clear to auscultation, Normal air movement Cardiovascular: Regular rate, Normal S1, Normal S2 Abdominal: Soft Extremities: No clubbing, No cyanosis, No edema, Normal pulses Skin: No rashes, No breakdown, No significant lesion Neuro: Normal gait, Normal speech, Strength at 5/5 X4 ext, Normal tone Psych/Mental Status: Mental status NL, Mood NL Labs/Xrays Labs Test 10/28/24 07:48 10/28/24 07:20 Range/Units White Blood Count 8.8 4.4-10.8 10^3/uL Red Blood Count 4.39 4.0-5.20 10^6/uL Hemoglobin 13.2 12.2-16.2 g/dL Hematocrit 39.6 36.0-46.0 % Mean Corpuscular Volume 90.4 80.0-100.0 fL Mean Corpuscular Hemoglobin 30.2 28.0-32.0 pg Mean Corpuscular Hemoglobin Concent 33.4 32.0-36.0 g/dL Red Cell Distribution Width 13.4 11.8-14.3 % Platelet Count 214 140-450 10^3/uL Mean Platelet Volume 9.2 6.9-10.8 fL Neutrophils (%) (Auto) 57.2 37.0-80.0 % Lymphocytes (%) (Auto) 30.6 10.0-50.0 % Monocytes (%) (Auto) 9.0 0.0-12.0 % Eosinophils (%) (Auto) 2.6 0.0-7.0 % Basophils (%) (Auto) 0.6 0.0-2.0 % Neutrophils # (Auto) 5.0 1.6-8.6 10 ^3/uL Lymphocytes # (Auto) 2.7 0.4-5.4 10 ^3/uL Monocytes # (Auto) 0.8 0-1.3 10 ^3/uL Eosinophils # (Auto) 0.2 0-0.8 10 ^3/uL Basophils # (Auto) 0.1 0-0.2 10 ^3/uL Nucleated Red Blood Cells 0.0 % Prothrombin Time 10.9 9.3-11.8 sec Prothrombin Time INR 1.03 0.9-1.15 Activated Partial Thromboplast Time 26.6 24.5-34.5 SEC Sodium Level 142 136-145 mmol/L Potassium Level 3.8 3.5-5.1 mmol/L Chloride Level 103 98-107 mmol/L Carbon Dioxide Level 31 20-31 mmol/L Anion Gap 8 5-15 Blood Urea Nitrogen 17 9-23 mg/dL Creatinine 1.16 H 0.550-1.02 mg/dL Glomerular Filtration Rate Calc 49 >90 mL/min BUN/Creatinine Ratio 14.7 10.0-20.0 Serum Glucose 122 H 74-106 mg/dL Calcium Level 10.5 H 8.7-10.4 mg/dL Urine Color Light-yellow Yellow Urine Clarity Clear Clear Urine pH 5.5 5.0-9.0 Urine Specific [place] 1.015 1.001-1.035 Urine Protein Negative Negative Urine Ketones Negative Negative Urine Blood 3+ H Negative /uL Urine Nitrite Negative Negative Urine Bilirubin Negative Negative Urine Urobilinogen Normal Negative mg/dL Urine Leukocyte Esterase 1+ Negative /uL Urine RBC 35 0 - 4 /hpf Urine Microscopic WBC 9 H 0-5 /HPF Urine Squamous Epithelial Cells Few <5 /hpf Urine Bacteria None seen None Seen /hpf Urine Glucose Normal Normal mg/dL Exam: CT CT AB PEL WO CON-NO ORAL OR IV Findings: Evaluation of solid organs is limited due to lack of intravenous contrast use. Lung Bases: Cardiomegaly. Coronary artery calcifications. Vascular calcifications of the aorta. Liver: The liver is normal in size. No focal lesions. Gallbladder and Biliary Tree: Unremarkable Spleen: Unremarkable Pancreas: The pancreas is grossly normal in appearance. Adrenal Glands: Unremarkable Kidneys: Right kidney is unremarkable. Left nephrectomy. Bladder: Grossly unremarkable for degree of distention. Bowel: The stomach is grossly normal in appearance. Moderate volume colonic stool. The appendix is not visualized; however, no secondary findings of acute appendicitis identified. Ascites: Absent Lymphadenopathy: No mesenteric, retroperitoneal or periportal lymphadenopathy. Abdominal Wall and Mesentery: Unremarkable. Vasculature: IVC filter in-situ. The visualized abdominal aorta is normal in size and caliber. There is extensive atherosclerotic calcification of the aorta and its branches. Evaluation of abdominal and pelvic vessels is limited due to lack of intravenous contrast. Pelvic Organs: The uterus is surgically absent. Musculoskeletal: No aggressive focal bony lesions, acute fractures or dislocation. Right hip surgical hardware. Advanced multilevel degenerative changes of the spine. Posterior lumbar spinal fixation hardware. IMPRESSION: Moderate volume colonic stool. Assessment/Plan Assessment/Plan Assessment: GI bleed, Hypertension, COPD, DVT right leg, Plan: Admit to Med-Surg, GI consult, Stool for occult blood, Clear liquid diet, IV hydration, Home medications reconciled, Plan discussed with: Patient My Orders Orders - ANGELICA KUMAR Procedure Category Date Status Time Admit ADMIT 10/28/24 Verified 10:52 Code Status CODE 10/28/24 Verified 10:52 Ondansetron Hcl PHA 10/28/24 Verified (Zofran) 11:00 Docusate Sodium PHA 10/28/24 Verified Capsule (Colace 11:00 Complete Blood Count LAB 10/29/24 Verified 04:00 Comprehensive LAB 10/29/24 Verified Metabolic Panel 04:00 Condition: Serious AKIRA 10/28/24 Verified 10:52 Acetaminophen Tablet PHA 10/28/24 Verified (Tylenol Tablet) 11:00 Clear Liq Diet DIET 10/28/24 Verified Lunch * [facility] CONS 10/28/24 Verified 10:52 Stool Occult Blood LAB 10/28/24 Verified 10:52 Amlodipine Tablet PHA 10/29/24 Verified (Norvasc Tablet) 10:00 Apixaban (Eliquis) PHA 10/28/24 Verified 22:00 Atorvastatin (Lipitor) PHA 10/29/24 Verified 10:00 Montelukast Tablet PHA 10/29/24 Verified (Singulair Tablet) 10:00 Oxycodone W/ Acet PHA 10/28/24 Verified 5/325mg Tab (Percocet 12:00 Trazodone Hcl PHA 10/28/24 Verified (Desyrel) 22:00 (NF) PHA 10/28/24 Verified Fluticasone-Salmeterol 22:00 (Nf) Gabapentin PHA 10/28/24 Verified 22:00 (Nf) Levothyroxine PHA 10/29/24 Verified Sodium 07:00 (Nf) Lisinopril PHA 10/29/24 Verified 10:00 Bupropion Tablet PHA 10/28/24 Verified (Wellbutrin Tablet) 19:00 Date of Service: Oct 28, 2024 Billing Provider: ANGELICA KUMAR Common Visit Codes: [id number] INP/OBS CARE (MOD) ANGELICA KUMAR Oct 28, 2024 11:23
[2024-10-28] MEDS: OXYCODONE W/ ACETAMINOPHEN 5/325MG TABLET PO SCH (16:44)
[2024-10-28] MEDS: MORPHINE SULFATE INJ 2 MG/ml SYRG IV ONE (16:55)
[2024-10-28] MEDS: ONDANSETRON HCL 4 MG/2 ML VIAL IV ONE (16:55)
[2024-10-28 18:31] VITALS: BP 119/63; PULSE 66; RESP 16; TEMP 97.6; O2SAT 96; O2SAT 98
[2024-10-28 19:05] VITALS: BP 96/55; PULSE 77; RESP 17; TEMP 97.9; O2SAT 98
[2024-10-28] MEDS: SODIUM CHLORIDE 0.9% 1,000 ML IV ONE (19:20)
[2024-10-28 20:00] VITALS: PULSE 74; RESP 18; O2SAT 93
[2024-10-28 21:00] VITALS: BP 123/69; PULSE 74; RESP 17; TEMP 98.3; O2SAT 93
[2024-10-28] MEDS: APIXABAN 5 MG TAB PO SCH (21:30)
[2024-10-28] MEDS: GABAPENTIN 400 MG CAP PO SCH (21:31)
[2024-10-28] MEDS: ONDANSETRON HCL 4 MG/2 ML VIAL IV PRN (21:39)
[2024-10-28] MEDS: ONDANSETRON HCL 4 MG/2 ML VIAL ONE (21:44)
[2024-10-28] MEDS ORDERED: GABAPENTIN 400 MG PO SCH (22:00)
[2024-10-28] MEDS: Fluticasone-Salmeterol (Advair Diskus 250/50) IN SCH (22:00)
[2024-10-29] VITALS (8 sets, daily range): BP systolic 103–127; BP diastolic 60–72; PULSE 69–80; RESP 1–18; TEMP 96.8–98.4; O2SAT 91–95
[2024-10-29] MEDS: HYDROcodone-ACET 7.5/325MG TAB PO ONE (03:49)
[2024-10-29 04:53] LABS: Urine Protein, UAD 1+ (Negative)
[2024-10-29] MEDS: LEVOTHYROXINE SODIUM 100 MCG TAB PO SCH (06:15)
[2024-10-29] MEDS: LEVOTHYROXINE SODIUM 25 MCG TAB PO SCH (06:15)
[2024-10-29 06:44] LABS: Hematocrit 37.4 % (36.0-46.0); Hemoglobin 12.4 g/dL (12.2-16.2); Mean Corpuscular Hemoglobin 30.3 pg (28.0-32.0); Mean Corpuscular Volume 91.4 fL (80.0-100.0); Nucleated Red Blood Cells % 0.1 %
[2024-10-29 06:53] LABS: Alkaline Phosphatase 84 U/L (46-116); Anion Gap 7 (5-15); BUN/Creatinine Ratio 10.9 (10.0-20.0); Blood Urea Nitrogen 11 mg/dL (9-23); Calcium 9.2 mg/dL (8.7-10.4); Chloride 107 mmol/L (98-107); Glucose 96 mg/dL (74-106); Potassium 4.2 mmol/L (3.5-5.1); Sodium 145 mmol/L (136-145); Total Protein 5.8 g/dL (5.7-8.2)
[2024-10-29 06:54] LABS: Albumin 3.8 g/dL (3.2-4.8)
[2024-10-29 06:55] LABS: Bilirubin, Total 0.5 mg/dL (0.2-1.0)
[2024-10-29] MEDS ORDERED: PATIENTS OWN MEDICATION (Levothyroxine Sodium 125 MCG) PO SCH (07:00)
[2024-10-29 07:03] LABS: Alanine Aminotransferase 137 U/L (7-40); Carbon Dioxide 31 mmol/L (20-31)
[2024-10-29] MEDS ORDERED: PATIENTS OWN MEDICATION (Lisinopril 10 MG) PO SCH (10:00)
[2024-10-29 10:07] LABS: Hepatitis B Surface Antigen Negative (Negative)
[2024-10-29] MEDS: MONTELUKAST SODIUM 10 MG TAB PO SCH (10:19)
[2024-10-29] MEDS: LISINOPRIL 5 MG TAB PO SCH (10:20)
[2024-10-29] MEDS: ATORVASTATIN 20 MG TAB PO SCH (10:22)
[2024-10-29 10:23] LABS: Hepatitis C Antibody Negative (Negative)
--- NOTE | 2024-10-29 15:24 | DVHPN2 ---
Reviewed: Care Plan, H&P, Labs, Medications, Previous Orders, Radiology Changes from previous H/P or p: No Changes Eyes: No Pain, No Vision change, No Conjunctivae inflammation, No Eyelid inflammation, No Other, No Redness ENT: No Ear pain, No Ear discharge, No Nose pain, No Nose discharge, No Nose congestion, No Mouth pain, No Mouth swelling, No Throat pain, No Throat swelling, No Other Cardiovascular: No Chest Pain, No Palpitations, No Orthopnea, No Paroxysmal Noc. Dyspnea, No Edema, No Lt Headedness, No Other Respiratory: No Cough, No Dry, No Shortness of breath, No SOB with excertion, No Wheezing, No Hemoptysis, No Pleuritic Pain, No Sputum, No Other Gastrointestinal: No Nausea, No Vomiting; Abdominal Pain, Diarrhea, C onstipation, Melena; No Hematochezia, No Other Genitourinary: No Dysuria, No Frequency, No Incontinence, No Hematuria, No Retention, No Other Musculoskeletal: No other, No neck pain, No shoulder pain, No arm pain, No back pain, No hand pain, No leg pain, No foot pain Skin: No Rash, No Lesions, No Jaundice, No Bruising, No Other Objective Vitals Vital Signs Date Time Temp Pulse Resp B/P (MAP) Pulse Ox O2 Delivery O2 Flow Rate FiO2 10/29/24 13:00 98.4 69 18 122/68 (86) 93 98.4 10/29/24 08:25 Room Air* 0 21 Intake/Output Intake and Output 10/29/24 07:00 Intake Total 1450 ml Balance 1450 ml Intake Oral 450 ml IV Total 1000 ml # Voids 3 # Bowel Movements 1 Medications Current Medications Medications Dose Ordered Sig/[place] Route Start Time Stop Time Status Last Admin Dose Admin Ondansetron HCl 4 mg Q4HP PRN IV 10/28/24 11:00 10/28/24 21:39 4 MG Docusate Sodium 100 mg BIDPRN PRN PO 10/28/24 11:00 Acetaminophen 650 mg Q6HP PRN PO 10/28/24 11:00 Amlodipine Besylate 2.5 mg DAILY PO 10/29/24 10:00 10/29/24 10:21 2.5 MG Apixaban 5 mg BID PO 10/28/24 22:00 10/29/24 10:21 5 MG Atorvastatin Calcium 20 mg DAILY PO 10/29/24 10:00 10/29/24 10:22 20 MG Montelukast Sodium 10 mg DAILY PO 10/29/24 10:00 10/29/24 10:19 10 MG Oxycodone/ Acetaminophen 1 tab QID PO 10/28/24 12:00 10/29/24 11:49 1 TAB Trazodone HCl 100 mg HS PO 10/28/24 22:00 10/28/24 22:26 100 MG Patient Own Medication 1 puff BID IN 10/28/24 22:00 Patient Own Medication 400 mg BID PO 10/28/24 22:00 UNV Patient Own Medication 125 mcg QAM PO 10/29/24 07:00 UNV Patient Own Medication 10 mg DAILY PO 10/29/24 10:00 UNV Bupropion HCl 100 mg BID@07,19 PO 10/28/24 19:00 10/29/24 06:15 100 MG Fluoxetine HCl 60 mg DAILY PO 10/29/24 10:00 10/29/24 10:19 60 MG Gabapentin 400 mg BID PO 10/28/24 22:00 10/29/24 10:19 400 MG Lisinopril 10 mg DAILY PO 10/29/24 10:00 10/29/24 10:20 10 MG Levothyroxine Sodium 100 mcg QAM PO 10/29/24 07:00 10/29/24 06:15 100 MCG Levothyroxine Sodium 25 mcg QAM PO 10/29/24 07:00 10/29/24 06:15 25 MCG Laboratory Results Laboratory Tests 10/29/24 05:57 Chemistry Test 10/29/24 05:57 Albumin 3.8 g/dL (3.2-4.8) Calcium Level 9.2 mg/dL (8.7-10.4) Total Protein 5.8 g/dL (5.7-8.2) LFT Test 10/29/24 05:57 Alanine Aminotransferase (ALT) 137 U/L (7-40) H Alkaline Phosphatase 84 U/L (46-116) Aspartate Amino Transferase (AST) 143 U/L (13-40) H Total Bilirubin 0.5 mg/dL (0.2-1.0) Urinalysis Test 10/29/24 03:00 Urine Color Light-red (Yellow) Urine Clarity Turbid (Clear) H Urine pH 6.0 (5.0-9.0) Urine Specific [place] 1.005 (1.001-1.035) Urine Protein 1+ (Negative) H Urine Ketones Negative (Negative) Urine Blood 3+ /uL (Negative) H Urine Nitrite Negative (Negative) Urine Bilirubin Negative (Negative) Urine Urobilinogen Normal mg/dL (Negative) Urine Leukocyte Esterase 1+ /uL (Negative) Urine RBC 489 /hpf (0 - 4) Urine Microscopic WBC 603 /HPF (0-5) H Urine Squamous Epithelial Cells None seen /hpf (<5) Urine Bacteria None seen /hpf (None Seen) Urine Glucose Normal mg/dL (Normal) Labs and/or images reviewed: Labs reviewed by me, Image(s) reviewed by me Assessment/Plan Assessment/Plan Blood in the stool hemoglobin stable at 14, GI consult for Dr. 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
[2024-10-29 16:33] LABS: INR 1.13 (0.9-1.15); Prothrombin Time 11.8 sec (9.3-11.8)
[2024-10-29] MEDS: ALPRAZolam 0.25 MG TAB PO ONE (22:19)
[2024-10-30] VITALS (8 sets, daily range): BP systolic 120–139; BP diastolic 61–83; PULSE 64–78; RESP 16–20; TEMP 96.1–98.6; O2SAT 92–96
--- NOTE | 2024-10-30 10:42 | DVHPN2 ---
Reviewed: Care Plan, H&P, Labs, Medications, Previous Orders, Radiology Changes from previous H/P or p: No Changes Eyes: No Pain, No Vision change, No Conjunctivae inflammation, No Eyelid inflammation, No Other, No Redness ENT: No Ear pain, No Ear discharge, No Nose pain, No Nose discharge, No Nose congestion, No Mouth pain, No Mouth swelling, No Throat pain, No Throat swelling, No Other Cardiovascular: No Chest Pain, No Palpitations, No Orthopnea, No Paroxysmal Noc. Dyspnea, No Edema, No Lt Headedness, No Other Respiratory: No Cough, No Dry, No Shortness of breath, No SOB with excertion, No Wheezing, No Hemoptysis, No Pleuritic Pain, No Sputum, No Other Gastrointestinal: No Nausea, No Vomiting; Abdominal Pain, Diarrhea, C onstipation, Melena; No Hematochezia, No Other Genitourinary: No Dysuria, No Frequency, No Incontinence, No Hematuria, No Retention, No Other Musculoskeletal: No other, No neck pain, No shoulder pain, No arm pain, No back pain, No hand pain, No leg pain, No foot pain Skin: No Rash, No Lesions, No Jaundice, No Bruising, No Other Objective Vitals Vital Signs Date Time Temp Pulse Resp B/P (MAP) Pulse Ox O2 Delivery O2 Flow Rate FiO2 10/30/24 08:39 98.1 75 18 139/61 (87) 96 98.1 10/29/24 20:00 Room Air* 0 21 Intake/Output Intake and Output 10/30/24 07:00 Intake Total 1692 ml Output Total 200 ml Balance 1492 ml Intake Oral 1692 ml Output Urine Total 200 ml # Voids 6 # Bowel Movements 1 Medications Current Medications Medications Dose Ordered Sig/[place] Route Start Time Stop Time Status Last Admin Dose Admin Ondansetron HCl 4 mg Q4HP PRN IV 10/28/24 11:00 10/29/24 20:23 4 MG Docusate Sodium 100 mg BIDPRN PRN PO 10/28/24 11:00 Acetaminophen 650 mg Q6HP PRN PO 10/28/24 11:00 Amlodipine Besylate 2.5 mg DAILY PO 10/29/24 10:00 10/29/24 10:21 2.5 MG Apixaban 5 mg BID PO 10/28/24 22:00 10/29/24 21:13 5 MG Atorvastatin Calcium 20 mg DAILY PO 10/29/24 10:00 10/29/24 10:22 20 MG Montelukast Sodium 10 mg DAILY PO 10/29/24 10:00 10/29/24 10:19 10 MG Oxycodone/ Acetaminophen 1 tab QID PO 10/28/24 12:00 10/30/24 06:30 1 TAB Trazodone HCl 100 mg HS PO 10/28/24 22:00 10/29/24 22:20 100 MG Patient Own Medication 1 puff BID IN 10/28/24 22:00 Patient Own Medication 400 mg BID PO 10/28/24 22:00 UNV Patient Own Medication 125 mcg QAM PO 10/29/24 07:00 UNV Patient Own Medication 10 mg DAILY PO 10/29/24 10:00 UNV Bupropion HCl 100 mg BID@07,19 PO 10/28/24 19:00 10/30/24 06:28 100 MG Fluoxetine HCl 60 mg DAILY PO 10/29/24 10:00 10/29/24 10:19 60 MG Gabapentin 400 mg BID PO 10/28/24 22:00 10/29/24 21:13 400 MG Lisinopril 10 mg DAILY PO 10/29/24 10:00 10/29/24 10:20 10 MG Levothyroxine Sodium 100 mcg QAM PO 10/29/24 07:00 10/30/24 06:28 100 MCG Levothyroxine Sodium 25 mcg QAM PO 10/29/24 07:00 10/30/24 06:28 25 MCG Laboratory Results Laboratory Tests 10/29/24 05:57 Coagulation Test 10/29/24 16:01 Prothrombin Time 11.8 sec (9.3-11.8) Prothrombin Time INR 1.13 (0.9-1.15) Urinalysis Test 10/29/24 03:00 Urine Color Light-red (Yellow) Urine Clarity Turbid (Clear) H Urine pH 6.0 (5.0-9.0) Urine Specific [place] 1.005 (1.001-1.035) Urine Protein 1+ (Negative) H Urine Ketones Negative (Negative) Urine Blood 3+ /uL (Negative) H Urine Nitrite Negative (Negative) Urine Bilirubin Negative (Negative) Urine Urobilinogen Normal mg/dL (Negative) Urine Leukocyte Esterase 1+ /uL (Negative) Urine RBC 489 /hpf (0 - 4) Urine Microscopic WBC 603 /HPF (0-5) H Urine Squamous Epithelial Cells None seen /hpf (<5) Urine Bacteria None seen /hpf (None Seen) Urine Glucose Normal mg/dL (Normal) Microbiology Microbiology Date/Time Source Procedure Growth Status 10/29/24 03:00 Voided Urine Urine Culture - Preliminary Resulted Labs and/or images reviewed: Labs reviewed by me, Image(s) reviewed by me Assessment/Plan Assessment/Plan Blood in the stool hemoglobin stable at 14, GI consult for Dr. 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
[2024-10-30] MEDS: PANTOPRAZOLE 40 MG TAB PO SCH (11:09)
--- NOTE | 2024-10-30 16:11 | DVHINCON2 ---
Date of service: Oct 30, [address] Rubio Reason for Consultation Rectal bleeding diarrhea History of Present Illness This 74-year-old female with a history of hypertension DVT on Eliquis and COPD came with the complaints of rectal bleeding as well as diarrhea. She has some abdominal cramps also of got family history of Crohn's disease in her father. No history of documented Crohn's disease for her Past Medical History Hypertension COPD Past Surgical History Cystectomy hysterectomy Family History: Crohn's disease G8 FATHER Ischemic heart disease G8 MOTHER Family History Noncontributory Social History Denies smoking or drinking Allergies: Coded Allergies: NO KNOWN ALLERGIES (Unverified , 07/09/23) Home Meds Active Scripts Apixaban Base (ELIQUIS) 5 Mg Tab, 5 MG PO BID, #60 TAB 5 Refills Prov:DANIELLA BEY MD 09/07/24 Reported Medications Oxycodone W/ Acetaminophen (Percocet 5/325MG) 1 Tab Tb, 1 TAB PO QID, #120 TAB 01/04/20 Trazodone HCl (Trazodone Hydrochloride) 50 Mg Tab, 100 MG PO HS, TAB 01/04/20 Omeprazole (Gnp Omeprazole) 20 Mg Tab, 2 TAB PO BID, #90 TAB 1 Refill 01/04/20 Montelukast Sodium (MONTELUKAST SODIUM) 10 Mg Tab, 1 TAB PO DAILY, #30 TAB 5 Refills 01/04/20 Methocarbamol (Methocarbamol) 750 Mg Tab, 750 MG PO BID for 30 Days, MG 01/04/20 Lisinopril (Lisinopril) 10 Mg Tab, 10 MG PO DAILY for 30 Days, MG 01/04/20 Levothyroxine Sodium (Levothyroxine Sodium) 125 Mcg Tab, 125 MCG PO QAM for 30 Days, MCG 01/04/20 Lamotrigine (Lamotrigine) 150 Mg Tab, 1 TAB PO BID, #60 TAB 1 Refill 01/04/20 Gabapentin (GABAPENTIN) 250 Mg/5 Ml [place], 400 MG PO BID, ML 01/04/20 Fluoxetine HCl (Fluoxetine) 60 Mg Tab, 30 MG PO, TAB 01/04/20 Fluticasone Propionate (Fluticasone Propionate) 0.05 % Cre, 50 MCG ISAIAS for 30 Days, MCG 01/04/20 Bupropion Hcl (Bupropion Hcl Sr) 100 Mg Tab, 100 MG PO, TAB 01/04/20 Buprenorphine (BUTRANS) 5 Mcg/Hr Dis, 1 PATCH TOP QWEEKLY, #4 PATCH 1 Refill 01/04/20 Atorvastatin Calcium (Lipitor) 20 Mg Tab, 1 TAB PO DAILY, #90 TAB 1 Refill 01/04/20 Amlodipine Besylate (Amlodipine Besylate) 5 Mg Tab, 2.5 MG PO DAILY for 30 Days, MG 01/04/20 Fluticasone-Salmeterol (Advair Diskus 250/50) 1 Puff Ih, 1 PUFF INH BID, #3 INHALER 3 Refills 01/04/20 Discontinued Scripts Apixaban Base (ELIQUIS) 5 Mg Tab, 10 MG PO BID for 7 Days, #28 TAB 10MG BID X 7 DAYS THEN 5MG PO BID FOR AT LEAST 6 MONTHS FOR DVT/PE TREATMENT Prov:DANIELLA BEY MD 09/07/24 Current Medications Current Medications Medications (Trade) Dose Ordered Sig/[place] Route PRN Reason Start Time Stop Time Status Last Admin Omeprazole (Omeprazole/ Sodium Bicarbo 20-1680 Mg) 40 mg DAILY PO 10/31/24 10:00 10/30/24 10:44 DC Pantoprazole Sodium (Protonix Tablet) 40 mg DAILY PO 10/30/24 10:47 10/30/24 11:09 Review of Systems Unremarkable Vital Signs Vital Signs Date Time Temp Pulse Resp B/P (MAP) Pulse Ox O2 Delivery O2 Flow Rate FiO2 10/30/24 12:54 98.5 70 20 137/68 (91) 92 98.5 10/30/24 08:30 Room Air* 0 21 Physical Exam Originally built and nourished female in no acute distress vital signs stable Lungs clear ENT examination unremarkable Cardiovascular unremarkable Soft no tenderness no rigidity no guarding no masses bowel sounds normal Extremities no edema Labs/Diagnostic Data Labs Test 10/29/24 20:20 10/29/24 16:01 10/29/24 05:57 10/29/24 03:00 Range/Units Stool Occult Blood Positive Negative Stool Occult Blood Sample #3 Negative Prothrombin Time 11.8 9.3-11.8 sec Prothrombin Time INR 1.13 0.9-1.15 White Blood Count 6.9 4.4-10.8 10^3/uL Red Blood Count 4.09 4.0-5.20 10^6/uL Hemoglobin 12.4 12.2-16.2 g/dL Hematocrit 37.4 36.0-46.0 % Mean Corpuscular Volume 91.4 80.0-100.0 fL Mean Corpuscular Hemoglobin 30.3 28.0-32.0 pg Mean Corpuscular Hemoglobin Concent 33.1 32.0-36.0 g/dL Red Cell Distribution Width 13.2 11.8-14.3 % Platelet Count 186 140-450 10^3/uL Mean Platelet Volume 9.4 6.9-10.8 fL Neutrophils (%) (Auto) 46.2 37.0-80.0 % Lymphocytes (%) (Auto) 39.2 10.0-50.0 % Monocytes (%) (Auto) 11.6 0.0-12.0 % Eosinophils (%) (Auto) 2.4 0.0-7.0 % Basophils (%) (Auto) 0.6 0.0-2.0 % Neutrophils # (Auto) 3.2 1.6-8.6 10 ^3/uL Lymphocytes # (Auto) 2.7 0.4-5.4 10 ^3/uL Monocytes # (Auto) 0.8 0-1.3 10 ^3/uL Eosinophils # (Auto) 0.2 0-0.8 10 ^3/uL Basophils # (Auto) 0 0-0.2 10 ^3/uL Nucleated Red Blood Cells 0.1 % Sodium Level 145 136-145 mmol/L Potassium Level 4.2 3.5-5.1 mmol/L Chloride Level 107 98-107 mmol/L Carbon Dioxide Level 31 20-31 mmol/L Anion Gap 7 5-15 Blood Urea Nitrogen 11 9-23 mg/dL Creatinine 1.01 0.550-1.02 mg/dL Glomerular Filtration Rate Calc 58 >90 mL/min BUN/Creatinine Ratio 10.9 10.0-20.0 Serum Glucose 96 74-106 mg/dL Calcium Level 9.2 8.7-10.4 mg/dL Total Bilirubin 0.5 0.2-1.0 mg/dL Aspartate Amino Transferase (AST) 143 H 13-40 U/L Alanine Aminotransferase (ALT) 137 H 7-40 U/L Alkaline Phosphatase 84 46-116 U/L Total Protein 5.8 5.7-8.2 g/dL Albumin 3.8 3.2-4.8 g/dL Urine Color Light-red Yellow Urine Clarity Turbid H Clear Urine pH 6.0 5.0-9.0 Urine Specific [place] 1.005 1.001-1.035 Urine Protein 1+ H Negative Urine Ketones Negative Negative Urine Blood 3+ H Negative /uL Urine Nitrite Negative Negative Urine Bilirubin Negative Negative Urine Urobilinogen Normal Negative mg/dL Urine Leukocyte Esterase 1+ Negative /uL Urine RBC 489 0 - 4 /hpf Urine Microscopic WBC 603 H 0-5 /HPF Urine Squamous Epithelial Cells None seen <5 /hpf Urine Bacteria None seen None Seen /hpf Urine Glucose Normal Normal mg/dL Test 10/28/24 07:48 Range/Units Activated Partial Thromboplast Time 26.6 24.5-34.5 SEC Hepatitis B Surface Antigen Negative Negative Hepatitis C Antibody Negative Negative Microbiology Date/Time Source Procedure Growth Status 10/29/24 03:00 Voided Urine Urine Culture - Preliminary Resulted Assessment 74-year-old with a history of hypertension DVT on Eliquis COPD admitted with the complaints of abdominal pain diarrhea rectal bleeding patient has got IVC filter insight and she is on Eliquis also. Whiskey a CT scan is unremarkable abdominal examination is unremarkable also except for some mild nonspecific tenderness in both lower quadrant CT showed no colitis or other pathology. Hemoglobin is 13 white count is 8.8 clinical impression is for diarrhea possible gastroenteritis possible colitis also can not be excluded with a history of Crohn's disease in the family. The suggestions are stool studies for O&P C&S we will also avoid Eliquis for now if not absolutely necessary and then follow the hemoglobin hence Persist may need further GI evaluation including colonoscopy etc. Thank you Dr. León Plan/Recommendation he suggestions are stool studies for O&P C&S we will also avoid Eliquis for now if not absolutely necessary and then follow the hemoglobin hence Persist may need further GI evaluation including colonoscopy etc. Thank you Plan discussed with: Patient WENDY LEÓN MD Oct 30, 2024 16:11
[2024-10-31] VITALS (7 sets, daily range): BP systolic 112–138; BP diastolic 60–99; PULSE 64–72; RESP 16–18; TEMP 97.5–98.7; O2SAT 90–97
--- NOTE | 2024-10-31 08:46 | DVHPN2 ---
Reviewed: Care Plan, H&P, Labs, Medications, Previous Orders, Radiology Changes from previous H/P or p: No Changes Eyes: No Pain, No Vision change, No Conjunctivae inflammation, No Eyelid inflammation, No Other, No Redness ENT: No Ear pain, No Ear discharge, No Nose pain, No Nose discharge, No Nose congestion, No Mouth pain, No Mouth swelling, No Throat pain, No Throat swelling, No Other Cardiovascular: No Chest Pain, No Palpitations, No Orthopnea, No Paroxysmal Noc. Dyspnea, No Edema, No Lt Headedness, No Other Respiratory: No Cough, No Dry, No Shortness of breath, No SOB with excertion, No Wheezing, No Hemoptysis, No Pleuritic Pain, No Sputum, No Other Gastrointestinal: No Nausea, No Vomiting; Abdominal Pain, Diarrhea, C onstipation, Melena; No Hematochezia, No Other Genitourinary: No Dysuria, No Frequency, No Incontinence, No Hematuria, No Retention, No Other Musculoskeletal: No other, No neck pain, No shoulder pain, No arm pain, No back pain, No hand pain, No leg pain, No foot pain Skin: No Rash, No Lesions, No Jaundice, No Bruising, No Other Objective Vitals Vital Signs Date Time Temp Pulse Resp B/P (MAP) Pulse Ox O2 Delivery O2 Flow Rate FiO2 10/31/24 05:00 98.1 67 16 134/60 (84) 97 98.1 10/30/24 20:00 Room Air* 0 21 Intake/Output Intake and Output 10/31/24 07:00 Intake Total 1180 ml Balance 1180 ml Intake Oral 1180 ml # Voids 8 # Bowel Movements 2 Medications Current Medications Medications Dose Ordered Sig/[place] Route Start Time Stop Time Status Last Admin Dose Admin Ondansetron HCl 4 mg Q4HP PRN IV 10/28/24 11:00 10/29/24 20:23 4 MG Docusate Sodium 100 mg BIDPRN PRN PO 10/28/24 11:00 Acetaminophen 650 mg Q6HP PRN PO 10/28/24 11:00 Amlodipine Besylate 2.5 mg DAILY PO 10/29/24 10:00 10/30/24 11:03 2.5 MG Atorvastatin Calcium 20 mg DAILY PO 10/29/24 10:00 10/30/24 11:01 20 MG Montelukast Sodium 10 mg DAILY PO 10/29/24 10:00 10/30/24 11:03 10 MG Oxycodone/ Acetaminophen 1 tab QID PO 10/28/24 12:00 10/31/24 06:25 1 TAB Trazodone HCl 100 mg HS PO 10/28/24 22:00 10/30/24 22:10 100 MG Patient Own Medication 1 puff BID IN 10/28/24 22:00 Patient Own Medication 400 mg BID PO 10/28/24 22:00 UNV Patient Own Medication 125 mcg QAM PO 10/29/24 07:00 UNV Patient Own Medication 10 mg DAILY PO 10/29/24 10:00 UNV Bupropion HCl 100 mg BID@07,19 PO 10/28/24 19:00 10/31/24 06:26 100 MG Fluoxetine HCl 60 mg DAILY PO 10/29/24 10:00 10/30/24 11:00 60 MG Gabapentin 400 mg BID PO 10/28/24 22:00 10/30/24 22:11 400 MG Lisinopril 10 mg DAILY PO 10/29/24 10:00 10/30/24 11:01 10 MG Levothyroxine Sodium 100 mcg QAM PO 10/29/24 07:00 10/31/24 06:25 100 MCG Levothyroxine Sodium 25 mcg QAM PO 10/29/24 07:00 10/31/24 06:25 25 MCG Pantoprazole Sodium 40 mg DAILY PO 10/30/24 10:47 10/30/24 11:09 40 MG Laboratory Results Laboratory Tests 10/29/24 05:57 Urinalysis Test 10/29/24 03:00 Urine Color Light-red (Yellow) Urine Clarity Turbid (Clear) H Urine pH 6.0 (5.0-9.0) Urine Specific [place] 1.005 (1.001-1.035) Urine Protein 1+ (Negative) H Urine Ketones Negative (Negative) Urine Blood 3+ /uL (Negative) H Urine Nitrite Negative (Negative) Urine Bilirubin Negative (Negative) Urine Urobilinogen Normal mg/dL (Negative) Urine Leukocyte Esterase 1+ /uL (Negative) Urine RBC 489 /hpf (0 - 4) Urine Microscopic WBC 603 /HPF (0-5) H Urine Squamous Epithelial Cells None seen /hpf (<5) Urine Bacteria None seen /hpf (None Seen) Urine Glucose Normal mg/dL (Normal) Microbiology Microbiology Date/Time Source Procedure Growth Status 10/29/24 03:00 Voided Urine Urine Culture - Preliminary Resulted Labs and/or images reviewed: Labs reviewed by me, Image(s) reviewed by me Assessment/Plan Assessment/Plan Blood in the stool hemoglobin stable at 14, GI consult for Dr. 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
[2024-10-31] MEDS ORDERED: OMEPRAZOLE-SOD BICARB 20 MG POWDER PO SCH (10:00)
--- NOTE | 2024-10-31 14:59 | DVHPN2 ---
Progress Note - Dictate Date Seen: Oct 31, 2024 Has the PT tested + for MRSA If YES, has PT been informed?: No Subjective Patient is off Eliquis now has stone complaints of any gross bleeding at this time mild pain in the abdomen vital signs Vital Sign Date Time Temp Pulse Resp B/P (MAP) Pulse Ox O2 Delivery O2 Flow Rate FiO2 10/31/24 13:00 98.7 64 18 131/99 (110) 94 98.7 10/31/24 08:20 Room Air* 0 21 Total Intake and Output 10/30/24 10/30/24 10/31/24 15:00 23:00 07:00 Intake Total 700 ml 480 ml Balance 700 ml 480 ml medications Current Medications Medications Dose Ordered Sig/[place] Route Start Time Stop Time Status Last Admin Dose Admin Ondansetron HCl 4 mg Q4HP PRN IV 10/28/24 11:00 10/29/24 20:23 4 MG Docusate Sodium 100 mg BIDPRN PRN PO 10/28/24 11:00 Acetaminophen 650 mg Q6HP PRN PO 10/28/24 11:00 Amlodipine Besylate 2.5 mg DAILY PO 10/29/24 10:00 10/31/24 10:56 2.5 MG Atorvastatin Calcium 20 mg DAILY PO 10/29/24 10:00 10/31/24 10:56 20 MG Montelukast Sodium 10 mg DAILY PO 10/29/24 10:00 10/31/24 10:56 10 MG Oxycodone/ Acetaminophen 1 tab QID PO 10/28/24 12:00 10/31/24 12:21 1 TAB Trazodone HCl 100 mg HS PO 10/28/24 22:00 10/30/24 22:10 100 MG Patient Own Medication 1 puff BID IN 10/28/24 22:00 Patient Own Medication 400 mg BID PO 10/28/24 22:00 UNV Patient Own Medication 125 mcg QAM PO 10/29/24 07:00 UNV Patient Own Medication 10 mg DAILY PO 10/29/24 10:00 UNV Bupropion HCl 100 mg BID@07,19 PO 10/28/24 19:00 10/31/24 06:26 100 MG Fluoxetine HCl 60 mg DAILY PO 10/29/24 10:00 10/31/24 10:56 60 MG Gabapentin 400 mg BID PO 10/28/24 22:00 10/31/24 10:55 400 MG Lisinopril 10 mg DAILY PO 10/29/24 10:00 10/31/24 10:55 10 MG Levothyroxine Sodium 100 mcg QAM PO 10/29/24 07:00 10/31/24 06:25 100 MCG Levothyroxine Sodium 25 mcg QAM PO 10/29/24 07:00 10/31/24 06:25 25 MCG Pantoprazole Sodium 40 mg DAILY PO 10/30/24 10:47 10/31/24 10:56 40 MG objective Abdomen soft nontender no masses laboratory and microbiology Laboratory Tests 10/29/24 05:57 Test 10/29/24 05:57 Range/Units Serum Glucose 96 74-106 mg/dL Assessment/Plan 74-year-old with a history of hypertension DVT on Eliquis COPD admitted with the complaints of abdominal pain diarrhea rectal bleeding patient has got IVC filter insight and she is on Eliquis also. CT scan is unremarkable Patient had copious amounts of blood apparently as an outpatient Patient is on Eliquis now and no gross bleeding To advance diet we will recommend to advance the diet till Sunday and then resume clear liquids and and bowel prep on Sunday and arrange arrange for the colonoscopy possibly on Sunday if Dr. Castaneda is available will recommend watch closely for bleeding in the meantime Thank you Dr. León Dietary Evaluation Review Comments: Follow GI consult, Offer Ensure Clear while pt is still on Clear Liquid Expected Outcomes/Goals: normal GI function, avoid fast wt loss Plan discussed with: Patient WENDY LEÓN MD Oct 31, 2024 14:59
[2024-10-31] MEDS: MELATONIN 5 MG TAB PO ONE (22:34)
[2024-11-01 01:00] VITALS: BP 102/67; PULSE 63; RESP 16; TEMP 98.2; O2SAT 97
[2024-11-01 05:00] VITALS: BP 142/86; PULSE 70; RESP 18; TEMP 98; O2SAT 93
[2024-11-01 07:47] LABS: Hematocrit 36.1 % (36.0-46.0); Hemoglobin 11.9 g/dL (12.2-16.2); Mean Corpuscular Hemoglobin 30.1 pg (28.0-32.0); Mean Corpuscular Volume 91.1 fL (80.0-100.0); Nucleated Red Blood Cells % 0.0 %
[2024-11-01 09:00] VITALS: BP 141/60; PULSE 69; RESP 16; TEMP 97.9; O2SAT 92
--- NOTE | 2024-11-01 09:39 | DVHPN2 ---
Reviewed: Care Plan, H&P, Labs, Medications, Previous Orders, Radiology Changes from previous H/P or p: No Changes Eyes: No Pain, No Vision change, No Conjunctivae inflammation, No Eyelid inflammation, No Other, No Redness ENT: No Ear pain, No Ear discharge, No Nose pain, No Nose discharge, No Nose congestion, No Mouth pain, No Mouth swelling, No Throat pain, No Throat swelling, No Other Cardiovascular: No Chest Pain, No Palpitations, No Orthopnea, No Paroxysmal Noc. Dyspnea, No Edema, No Lt Headedness, No Other Respiratory: No Cough, No Dry, No Shortness of breath, No SOB with excertion, No Wheezing, No Hemoptysis, No Pleuritic Pain, No Sputum, No Other Gastrointestinal: No Nausea, No Vomiting; Abdominal Pain, Diarrhea, C onstipation, Melena; No Hematochezia, No Other Genitourinary: No Dysuria, No Frequency, No Incontinence, No Hematuria, No Retention, No Other Musculoskeletal: No other, No neck pain, No shoulder pain, No arm pain, No back pain, No hand pain, No leg pain, No foot pain Skin: No Rash, No Lesions, No Jaundice, No Bruising, No Other Objective Vitals Vital Signs Date Time Temp Pulse Resp B/P (MAP) Pulse Ox O2 Delivery O2 Flow Rate FiO2 11/01/24 08:00 Nasal Cannula* 2 28 11/01/24 05:00 98.0 70 18 142/86 (104) 93 98.0 Intake/Output Intake and Output 11/01/24 07:00 Intake Total 1000 ml Balance 1000 ml Intake Oral 1000 ml # Voids 7 Medications Current Medications Medications Dose Ordered Sig/[place] Route Start Time Stop Time Status Last Admin Dose Admin Ondansetron HCl 4 mg Q4HP PRN IV 10/28/24 11:00 10/29/24 20:23 4 MG Docusate Sodium 100 mg BIDPRN PRN PO 10/28/24 11:00 Acetaminophen 650 mg Q6HP PRN PO 10/28/24 11:00 Amlodipine Besylate 2.5 mg DAILY PO 10/29/24 10:00 10/31/24 10:56 2.5 MG Atorvastatin Calcium 20 mg DAILY PO 10/29/24 10:00 10/31/24 10:56 20 MG Montelukast Sodium 10 mg DAILY PO 10/29/24 10:00 10/31/24 10:56 10 MG Oxycodone/ Acetaminophen 1 tab QID PO 10/28/24 12:00 11/01/24 06:06 1 TAB Patient Own Medication 1 puff BID IN 10/28/24 22:00 Patient Own Medication 400 mg BID PO 10/28/24 22:00 UNV Patient Own Medication 125 mcg QAM PO 10/29/24 07:00 UNV Patient Own Medication 10 mg DAILY PO 10/29/24 10:00 UNV Bupropion HCl 100 mg BID@07,19 PO 10/28/24 19:00 11/01/24 06:05 100 MG Fluoxetine HCl 60 mg DAILY PO 10/29/24 10:00 10/31/24 10:56 60 MG Gabapentin 400 mg BID PO 10/28/24 22:00 10/31/24 21:50 400 MG Lisinopril 10 mg DAILY PO 10/29/24 10:00 10/31/24 10:55 10 MG Levothyroxine Sodium 100 mcg QAM PO 10/29/24 07:00 11/01/24 06:05 100 MCG Levothyroxine Sodium 25 mcg QAM PO 10/29/24 07:00 11/01/24 06:05 25 MCG Pantoprazole Sodium 40 mg DAILY PO 10/30/24 10:47 10/31/24 10:56 40 MG Trazodone HCl 200 mg HS PO 11/01/24 22:00 Laboratory Results Laboratory Tests 10/29/24 05:57 11/01/24 06:48 Urinalysis Test 10/29/24 03:00 Urine Color Light-red (Yellow) Urine Clarity Turbid (Clear) H Urine pH 6.0 (5.0-9.0) Urine Specific [place] 1.005 (1.001-1.035) Urine Protein 1+ (Negative) H Urine Ketones Negative (Negative) Urine Blood 3+ /uL (Negative) H Urine Nitrite Negative (Negative) Urine Bilirubin Negative (Negative) Urine Urobilinogen Normal mg/dL (Negative) Urine Leukocyte Esterase 1+ /uL (Negative) Urine RBC 489 /hpf (0 - 4) Urine Microscopic WBC 603 /HPF (0-5) H Urine Squamous Epithelial Cells None seen /hpf (<5) Urine Bacteria None seen /hpf (None Seen) Urine Glucose Normal mg/dL (Normal) Microbiology Microbiology Date/Time Source Procedure Growth Status 10/29/24 03:00 Voided Urine Urine Culture - Final Complete Labs and/or images reviewed: Labs reviewed by me, Image(s) reviewed by me Assessment/Plan Assessment/Plan Blood in the stool hemoglobin stable at 14, GI consult for Dr. 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 Espino Plan discussed with: Patient My Orders Orders - DARLING VEGA MD Procedure Category Date Status Time Cleanse Wound With AKIRA 10/31/24 In Process Mild Soap A 09:50 Date of Service: Nov 01, 2024 Billing Provider: DARLING VEGA MD Common Visit Codes: [id number] INP/OBS CARE(HIGH) DARLING VEGA MD Nov 01, 2024 09:39
[2024-11-01 12:54] VITALS: BP 121/47; PULSE 64; RESP 12; TEMP 98.5; O2SAT 64; O2SAT 95
[2024-11-01] MEDS: ALPRAZolam 0.5 MG TAB PO SCH (13:27)
--- NOTE | 2024-11-01 14:00 | DVHPN2 ---
Progress Note - Dictate Date Seen: Nov 01, 2024 Has the PT tested + for MRSA If YES, has PT been informed?: No Medical Necessity Reason Pt with a Central, PICC or Fol: No Subjective Patient is off Eliquis now has stone complaints of any gross bleeding at this time mild pain in the abdomen Stable hemoglobin vital signs Vital Sign Date Time Temp Pulse Resp B/P (MAP) Pulse Ox O2 Delivery O2 Flow Rate FiO2 11/01/24 12:54 98.5 64 12 121/47 (71) 64 98.5 11/01/24 08:00 Nasal Cannula* 2 28 Total Intake and Output 10/31/24 10/31/24 11/01/24 15:00 23:00 07:00 Intake Total 600 ml 400 ml Balance 600 ml 400 ml medications Current Medications Medications Dose Ordered Sig/[place] Route Start Time Stop Time Status Last Admin Dose Admin Ondansetron HCl 4 mg Q4HP PRN IV 10/28/24 11:00 10/29/24 20:23 4 MG Docusate Sodium 100 mg BIDPRN PRN PO 10/28/24 11:00 Acetaminophen 650 mg Q6HP PRN PO 10/28/24 11:00 Amlodipine Besylate 2.5 mg DAILY PO 10/29/24 10:00 11/01/24 10:35 2.5 MG Atorvastatin Calcium 20 mg DAILY PO 10/29/24 10:00 11/01/24 10:34 20 MG Montelukast Sodium 10 mg DAILY PO 10/29/24 10:00 11/01/24 10:35 10 MG Oxycodone/ Acetaminophen 1 tab QID PO 10/28/24 12:00 11/01/24 06:06 1 TAB Patient Own Medication 1 puff BID IN 10/28/24 22:00 Patient Own Medication 400 mg BID PO 10/28/24 22:00 UNV Patient Own Medication 125 mcg QAM PO 10/29/24 07:00 UNV Patient Own Medication 10 mg DAILY PO 10/29/24 10:00 UNV Bupropion HCl 100 mg BID@07,19 PO 10/28/24 19:00 11/01/24 06:05 100 MG Fluoxetine HCl 60 mg DAILY PO 10/29/24 10:00 11/01/24 10:35 60 MG Gabapentin 400 mg BID PO 10/28/24 22:00 11/01/24 10:35 400 MG Lisinopril 10 mg DAILY PO 10/29/24 10:00 11/01/24 10:33 10 MG Levothyroxine Sodium 100 mcg QAM PO 10/29/24 07:00 11/01/24 06:05 100 MCG Levothyroxine Sodium 25 mcg QAM PO 10/29/24 07:00 11/01/24 06:05 25 MCG Pantoprazole Sodium 40 mg DAILY PO 10/30/24 10:47 11/01/24 10:33 40 MG Trazodone HCl 200 mg HS PO 11/01/24 22:00 Alprazolam 1 mg TID PO 11/01/24 14:00 11/01/24 13:27 1 MG objective Abdomen soft nontender no masses bowel sounds present laboratory and microbiology Laboratory Tests 11/01/24 06:48 10/29/24 05:57 Test 10/29/24 05:57 Range/Units Serum Glucose 96 74-106 mg/dL Assessment/Plan 74-year-old with a history of hypertension DVT on Eliquis COPD admitted with the complaints of abdominal pain diarrhea rectal bleeding patient has got IVC filter insight and she is on Eliquis also. CT scan is unremarkable Patient is doing fine without gross bleeding at this time off Eliquis Could be done as an outpatient colonoscopy as long as it can be done soon since patient has to be back on Eliquis Thank you Dr. Kenzie Espino Dietary Evaluation Review Comments: Follow GI consult, Offer Ensure Clear while pt is still on Clear Liquid Expected Outcomes/Goals: normal GI function, avoid fast wt loss Plan discussed with: Patient WENDY ESPINO MD Nov 01, 2024 14:00
[2024-11-01 16:36] VITALS: BP 127/69; PULSE 72; RESP 14; TEMP 97.6; O2SAT 92
[2024-11-01 21:00] VITALS: BP 118/83; PULSE 77; RESP 18; TEMP 97.9; O2SAT 97
[2024-11-02 01:00] VITALS: BP 119/81; PULSE 76; RESP 18; TEMP 97.8; O2SAT 97
[2024-11-02 08:44] VITALS: BP 132/73; PULSE 66; RESP 16; TEMP 97.7; O2SAT 97
--- NOTE | 2024-11-02 10:33 | DVHPN2 ---
Reviewed: Care Plan, H&P, Labs, Medications, Previous Orders, Radiology Changes from previous H/P or p: No Changes Eyes: No Pain, No Vision change, No Conjunctivae inflammation, No Eyelid inflammation, No Other, No Redness ENT: No Ear pain, No Ear discharge, No Nose pain, No Nose discharge, No Nose congestion, No Mouth pain, No Mouth swelling, No Throat pain, No Throat swelling, No Other Cardiovascular: No Chest Pain, No Palpitations, No Orthopnea, No Paroxysmal Noc. Dyspnea, No Edema, No Lt Headedness, No Other Respiratory: No Cough, No Dry, No Shortness of breath, No SOB with excertion, No Wheezing, No Hemoptysis, No Pleuritic Pain, No Sputum, No Other Gastrointestinal: No Nausea, No Vomiting; Abdominal Pain, Diarrhea, C onstipation, Melena; No Hematochezia, No Other Genitourinary: No Dysuria, No Frequency, No Incontinence, No Hematuria, No Retention, No Other Musculoskeletal: No other, No neck pain, No shoulder pain, No arm pain, No back pain, No hand pain, No leg pain, No foot pain Skin: No Rash, No Lesions, No Jaundice, No Bruising, No Other Objective Vitals Vital Signs Date Time Temp Pulse Resp B/P (MAP) Pulse Ox O2 Delivery O2 Flow Rate FiO2 11/02/24 08:44 97.7 66 16 132/73 (92) 97 97.7 11/01/24 20:00 Nasal Cannula* 2 28 Intake/Output Intake and Output 11/02/24 07:00 Intake Total 1240 ml Balance 1240 ml Intake Oral 1240 ml # Voids 5 Medications Current Medications Medications Dose Ordered Sig/[place] Route Start Time Stop Time Status Last Admin Dose Admin Ondansetron HCl 4 mg Q4HP PRN IV 10/28/24 11:00 10/29/24 20:23 4 MG Docusate Sodium 100 mg BIDPRN PRN PO 10/28/24 11:00 Acetaminophen 650 mg Q6HP PRN PO 10/28/24 11:00 Amlodipine Besylate 2.5 mg DAILY PO 10/29/24 10:00 11/01/24 10:35 2.5 MG Atorvastatin Calcium 20 mg DAILY PO 10/29/24 10:00 11/01/24 10:34 20 MG Montelukast Sodium 10 mg DAILY PO 10/29/24 10:00 11/01/24 10:35 10 MG Oxycodone/ Acetaminophen 1 tab QID PO 10/28/24 12:00 11/02/24 06:32 1 TAB Patient Own Medication 1 puff BID IN 10/28/24 22:00 Patient Own Medication 400 mg BID PO 10/28/24 22:00 UNV Patient Own Medication 125 mcg QAM PO 10/29/24 07:00 UNV Patient Own Medication 10 mg DAILY PO 10/29/24 10:00 UNV Bupropion HCl 100 mg BID@07,19 PO 10/28/24 19:00 11/02/24 06:32 100 MG Fluoxetine HCl 60 mg DAILY PO 10/29/24 10:00 11/01/24 10:35 60 MG Gabapentin 400 mg BID PO 10/28/24 22:00 11/01/24 21:07 400 MG Lisinopril 10 mg DAILY PO 10/29/24 10:00 11/01/24 10:33 10 MG Levothyroxine Sodium 100 mcg QAM PO 10/29/24 07:00 11/02/24 06:32 100 MCG Levothyroxine Sodium 25 mcg QAM PO 10/29/24 07:00 11/02/24 06:32 25 MCG Pantoprazole Sodium 40 mg DAILY PO 10/30/24 10:47 11/01/24 10:33 40 MG Trazodone HCl 200 mg HS PO 11/01/24 22:00 11/01/24 21:08 200 MG Alprazolam 1 mg TID PO 11/01/24 14:00 11/02/24 06:31 1 MG Laboratory Results Laboratory Tests 10/29/24 05:57 11/01/24 06:48 Urinalysis Test 10/29/24 03:00 Urine Color Light-red (Yellow) Urine Clarity Turbid (Clear) H Urine pH 6.0 (5.0-9.0) Urine Specific [place] 1.005 (1.001-1.035) Urine Protein 1+ (Negative) H Urine Ketones Negative (Negative) Urine Blood 3+ /uL (Negative) H Urine Nitrite Negative (Negative) Urine Bilirubin Negative (Negative) Urine Urobilinogen Normal mg/dL (Negative) Urine Leukocyte Esterase 1+ /uL (Negative) Urine RBC 489 /hpf (0 - 4) Urine Microscopic WBC 603 /HPF (0-5) H Urine Squamous Epithelial Cells None seen /hpf (<5) Urine Bacteria None seen /hpf (None Seen) Urine Glucose Normal mg/dL (Normal) Microbiology Microbiology Date/Time Source Procedure Growth Status 10/29/24 03:00 Voided Urine Urine Culture - Final Complete Labs and/or images reviewed: Labs reviewed by me, Image(s) reviewed by me Assessment/Plan Assessment/Plan Blood in the stool hemoglobin stable at 14, GI consult for Dr. 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 Espino Plan discussed with: Patient My Orders Orders - DARLING VEGA MD Procedure Category Date Status Time Clear Liq Diet DIET 11/02/24 Transmitted Breakfast Date of Service: Nov 02, 2024 Billing Provider: DARLING VEGA MD Common Visit Codes: [id number] INP/OBS CARE(HIGH) DARLING VEGA MD Nov 02, 2024 10:33
[2024-11-02 12:39] VITALS: BP 115/72; PULSE 74; RESP 17; TEMP 97.7; TEMP 99.9; O2SAT 94
--- NOTE | 2024-11-02 13:42 | DVHPN2 ---
Progress Note - Dictate Date Seen: Nov 02, 2024 Has the PT tested + for MRSA If YES, has PT been informed?: No Medical Necessity Reason Pt with a Central, PICC or Fol: No Subjective Patient is off Eliquis now has stone complaints of any gross bleeding at this time mild pain in the abdomen Stable hemoglobin vital signs Vital Sign Date Time Temp Pulse Resp B/P (MAP) Pulse Ox O2 Delivery O2 Flow Rate FiO2 11/02/24 12:39 97.7 74 17 115/72 (86) 94 97.7 11/01/24 20:00 Nasal Cannula* 2 28 Total Intake and Output 11/01/24 11/01/24 11/02/24 15:00 23:00 07:00 Intake Total 600 ml 640 ml Balance 600 ml 640 ml medications Current Medications Medications Dose Ordered Sig/[place] Route Start Time Stop Time Status Last Admin Dose Admin Ondansetron HCl 4 mg Q4HP PRN IV 10/28/24 11:00 10/29/24 20:23 4 MG Docusate Sodium 100 mg BIDPRN PRN PO 10/28/24 11:00 Acetaminophen 650 mg Q6HP PRN PO 10/28/24 11:00 Amlodipine Besylate 2.5 mg DAILY PO 10/29/24 10:00 11/02/24 11:58 2.5 MG Atorvastatin Calcium 20 mg DAILY PO 10/29/24 10:00 11/02/24 11:56 20 MG Montelukast Sodium 10 mg DAILY PO 10/29/24 10:00 11/02/24 11:56 10 MG Oxycodone/ Acetaminophen 1 tab QID PO 10/28/24 12:00 11/02/24 06:32 1 TAB Patient Own Medication 1 puff BID IN 10/28/24 22:00 Patient Own Medication 400 mg BID PO 10/28/24 22:00 UNV Patient Own Medication 125 mcg QAM PO 10/29/24 07:00 UNV Patient Own Medication 10 mg DAILY PO 10/29/24 10:00 UNV Bupropion HCl 100 mg BID@07,19 PO 10/28/24 19:00 11/02/24 06:32 100 MG Fluoxetine HCl 60 mg DAILY PO 10/29/24 10:00 11/02/24 11:56 60 MG Gabapentin 400 mg BID PO 10/28/24 22:00 11/02/24 11:56 400 MG Lisinopril 10 mg DAILY PO 10/29/24 10:00 11/02/24 11:57 10 MG Levothyroxine Sodium 100 mcg QAM PO 10/29/24 07:00 11/02/24 06:32 100 MCG Levothyroxine Sodium 25 mcg QAM PO 10/29/24 07:00 11/02/24 06:32 25 MCG Pantoprazole Sodium 40 mg DAILY PO 10/30/24 10:47 11/02/24 11:56 40 MG Trazodone HCl 200 mg HS PO 11/01/24 22:00 11/01/24 21:08 200 MG Alprazolam 1 mg TID PO 11/01/24 14:00 11/02/24 06:31 1 MG objective Abdomen soft nontender no masses bowel sounds present no gross bleeding now laboratory and microbiology Laboratory Tests 11/01/24 06:48 10/29/24 05:57 Test 10/29/24 05:57 Range/Units Serum Glucose 96 74-106 mg/dL Assessment/Plan This lady with complaints of rectal bleeding on Eliquis now off Eliquis for the 3rd in now no gross bleeding Bowel properly be ordered today to see if she can have the colonoscopy tomorrow patient is eager to go home after the colonoscopy and wants it done because of the need for Eliquis We will endorse to Dr. Castaneda hopefully she can arrange in the same at early convenience Dr. León Dietary Evaluation Review Comments: Follow GI consult, Offer Ensure Clear while pt is still on Clear Liquid Expected Outcomes/Goals: normal GI function, avoid fast wt loss Plan discussed with: Patient WENDY LEÓN MD Nov 02, 2024 13:42
--- NOTE | 2024-11-02 16:24 | DVH ---
EXAM: XY CHEST PORTABLE TECHNIQUE: Single frontal chest radiograph CLINICAL HISTORY: pro-op clearance COMPARISON: XY CHEST PORTABLE on DOS: 09/03/24, CHEST PORTABLE on DOS: 01/04/20 Findings/Impression: Frontal chest radiograph demonstrates no acute osseous or superficial soft tissue abnormalities. The trachea is midline. The cardiac silhouette and mediastinum are within normal limits. No pneumothorax, pleural effusions, or consolidations.
[2024-11-02 17:00] VITALS: BP 127/72; PULSE 73; RESP 19; TEMP 97.9; O2SAT 93
[2024-11-02] MEDS: GOLYTELY 4L KIT PO ONE (17:17)
[2024-11-02 21:00] VITALS: BP 128/93; PULSE 78; RESP 18; TEMP 98; O2SAT 90
[2024-11-03] VITALS (9 sets, daily range): BP systolic 123–144; BP diastolic 57–84; PULSE 68–103; RESP 11–20; TEMP 97.2–98.7; O2SAT 91–97
[2024-11-03] MEDS: MAGNESIUM CITRATE SOLUTION 300 ML BTL PO ONE (06:18)
[2024-11-03 06:57] LABS: Hematocrit 38.9 % (36.0-46.0); Hemoglobin 12.8 g/dL (12.2-16.2); Mean Corpuscular Hemoglobin 30.1 pg (28.0-32.0); Mean Corpuscular Volume 91.5 fL (80.0-100.0); Nucleated Red Blood Cells % 0.0 %
[2024-11-03 06:58] LABS: Alanine Aminotransferase 32 U/L (7-40); Albumin 3.5 g/dL (3.2-4.8); Alkaline Phosphatase 75 U/L (46-116); Anion Gap 8 (5-15); BUN/Creatinine Ratio 6.2 (10.0-20.0); Bilirubin, Total 0.4 mg/dL (0.2-1.0); Blood Urea Nitrogen 6 mg/dL (9-23); Calcium 9.6 mg/dL (8.7-10.4); Carbon Dioxide 30 mmol/L (20-31); Chloride 107 mmol/L (98-107); Glucose 87 mg/dL (74-106); Potassium 4.2 mmol/L (3.5-5.1); Sodium 145 mmol/L (136-145); Total Protein 5.7 g/dL (5.7-8.2)
--- NOTE | 2024-11-03 09:57 | DVHPN2 ---
Reviewed: Care Plan, H&P, Labs, Medications, Previous Orders, Radiology Changes from previous H/P or p: No Changes Eyes: No Pain, No Vision change, No Conjunctivae inflammation, No Eyelid inflammation, No Other, No Redness ENT: No Ear pain, No Ear discharge, No Nose pain, No Nose discharge, No Nose congestion, No Mouth pain, No Mouth swelling, No Throat pain, No Throat swelling, No Other Cardiovascular: No Chest Pain, No Palpitations, No Orthopnea, No Paroxysmal Noc. Dyspnea, No Edema, No Lt Headedness, No Other Respiratory: No Cough, No Dry, No Shortness of breath, No SOB with excertion, No Wheezing, No Hemoptysis, No Pleuritic Pain, No Sputum, No Other Gastrointestinal: No Nausea, No Vomiting; Abdominal Pain, Diarrhea, C onstipation, Melena; No Hematochezia, No Other Genitourinary: No Dysuria, No Frequency, No Incontinence, No Hematuria, No Retention, No Other Musculoskeletal: No other, No neck pain, No shoulder pain, No arm pain, No back pain, No hand pain, No leg pain, No foot pain Skin: No Rash, No Lesions, No Jaundice, No Bruising, No Other Objective Vitals Vital Signs Date Time Temp Pulse Resp B/P (MAP) Pulse Ox O2 Delivery O2 Flow Rate FiO2 11/03/24 08:10 98.3 85 18 137/83 (101) 97 98.3 11/02/24 20:00 Nasal Cannula* 2 28 Intake/Output Intake and Output 11/03/24 07:00 Intake Total 1700 ml Balance 1700 ml Intake Oral 1700 ml # Voids 16 # Bowel Movements 6 Medications Current Medications Medications Dose Ordered Sig/[place] Route Start Time Stop Time Status Last Admin Dose Admin Ondansetron HCl 4 mg Q4HP PRN IV 10/28/24 11:00 10/29/24 20:23 4 MG Docusate Sodium 100 mg BIDPRN PRN PO 10/28/24 11:00 Acetaminophen 650 mg Q6HP PRN PO 10/28/24 11:00 Amlodipine Besylate 2.5 mg DAILY PO 10/29/24 10:00 11/02/24 11:58 2.5 MG Atorvastatin Calcium 20 mg DAILY PO 10/29/24 10:00 11/02/24 11:56 20 MG Montelukast Sodium 10 mg DAILY PO 10/29/24 10:00 11/02/24 11:56 10 MG Oxycodone/ Acetaminophen 1 tab QID PO 10/28/24 12:00 11/02/24 06:32 1 TAB Patient Own Medication 1 puff BID IN 10/28/24 22:00 Patient Own Medication 400 mg BID PO 10/28/24 22:00 UNV Patient Own Medication 125 mcg QAM PO 10/29/24 07:00 UNV Patient Own Medication 10 mg DAILY PO 10/29/24 10:00 UNV Bupropion HCl 100 mg BID@07,19 PO 10/28/24 19:00 11/03/24 06:19 100 MG Fluoxetine HCl 60 mg DAILY PO 10/29/24 10:00 11/02/24 11:56 60 MG Gabapentin 400 mg BID PO 10/28/24 22:00 11/02/24 21:11 400 MG Lisinopril 10 mg DAILY PO 10/29/24 10:00 11/02/24 11:57 10 MG Levothyroxine Sodium 100 mcg QAM PO 10/29/24 07:00 11/03/24 06:19 100 MCG Levothyroxine Sodium 25 mcg QAM PO 10/29/24 07:00 11/03/24 06:19 25 MCG Pantoprazole Sodium 40 mg DAILY PO 10/30/24 10:47 11/02/24 11:56 40 MG Trazodone HCl 200 mg HS PO 11/01/24 22:00 11/02/24 21:11 200 MG Alprazolam 1 mg TID PO 11/01/24 14:00 11/03/24 06:19 1 MG Laboratory Results Laboratory Tests 11/03/24 05:59 Chemistry Test 11/03/24 05:59 Albumin 3.5 g/dL (3.2-4.8) Calcium Level 9.6 mg/dL (8.7-10.4) Total Protein 5.7 g/dL (5.7-8.2) LFT Test 11/03/24 05:59 Alanine Aminotransferase (ALT) 32 U/L (7-40) Alkaline Phosphatase 75 U/L (46-116) Aspartate Amino Transferase (AST) 16 U/L (13-40) Total Bilirubin 0.4 mg/dL (0.2-1.0) Urinalysis Test 10/29/24 03:00 Urine Color Light-red (Yellow) Urine Clarity Turbid (Clear) H Urine pH 6.0 (5.0-9.0) Urine Specific [place] 1.005 (1.001-1.035) Urine Protein 1+ (Negative) H Urine Ketones Negative (Negative) Urine Blood 3+ /uL (Negative) H Urine Nitrite Negative (Negative) Urine Bilirubin Negative (Negative) Urine Urobilinogen Normal mg/dL (Negative) Urine Leukocyte Esterase 1+ /uL (Negative) Urine RBC 489 /hpf (0 - 4) Urine Microscopic WBC 603 /HPF (0-5) H Urine Squamous Epithelial Cells None seen /hpf (<5) Urine Bacteria None seen /hpf (None Seen) Urine Glucose Normal mg/dL (Normal) Microbiology Microbiology Date/Time Source Procedure Growth Status 10/29/24 03:00 Voided Urine Urine Culture - Final Complete Labs and/or images reviewed: Labs reviewed by me, Image(s) reviewed by me Assessment/Plan Assessment/Plan Blood in the stool hemoglobin stable at 14, GI consult for Dr. 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 Espino Plan discussed with: Patient My Orders Orders - DARLING VEGA MD Procedure Category Date Status Time Chest Portable XY 11/02/24 Resulted 14:41 Date of Service: Nov 03, 2024 Billing Provider: DARLING VEGA MD Common Visit Codes: [id number] INP/OBS CARE(HIGH) DARLING VEGA MD Nov 03, 2024 09:57
[2024-11-03] MEDS ORDERED: PROPOFOL 10 MG/ML 20 ML IV ONE (14:25)
[2024-11-03] MEDS ORDERED: LIDOCAINE 2% (LOCAL ANESTH.) PF 5ml SDV ONE (14:25)
[2024-11-03] MEDS ORDERED: MIDAZOLAM HCL 2MG/2ML 2ml VIAL (1mg/ml) ONE (14:25)
--- NOTE | 2024-11-03 15:08 | DVHOP2 ---
Operative Report DATE OF OPERATION: 11/03/24 PROCEDURE: Colonoscopy with hot snare polypectomy. PREOPERATIVE INDICATION: The patient is a 74 -year-old female undergoing colonoscopy for evaluation of rectal bleeding POSTOPERATIVE DIAGNOSES: 1. There was a 5-6mm descending colon polyp that was seen and removed by hot snare polypectomy and the specimens were retrieved 2. Patient had a 2-3 mm benign-appearing transverse colon polyp that was seen and removed by cold snare polypectomy but the specimen was not retrieved 3. Patient had a 1-2 mm benign-appearing ascending colon polyp that was seen and removed by cold biopsy forceps 4. There was a 1-2 mm benign-appearing rectal polyp that was seen and removed by cold biopsy forceps 5. Mild early sigmoid diverticular disease and mild tortuosity of the colon especially involving the mid transverse and the hepatic flexure 6. 1+internal hemorrhoids otherwise completely normal colonoscopy examination up to the cecum with no fresh or old blood in the lower GI tract and a good bowel prep PROCEDURE PERFORMED BY: Kenny Castaneda M.D. SCOPE: Olympus videocolonoscope. ASA CLASS: 3 PREOPERATIVE MEDICATIONS: Dr. Preet Lam PROCEDURE IN DETAIL: After obtaining an informed consent, the patient was placed on left lateral decubitus position. She was then sedated with the above medications. A rectal examination was performed that was normal. The colonoscope was then passed through the anus into the rectosigmoid and through the descending, transverse, and ascending colon up to the cecum with visualization of the appendiceal orifice, base of the cecum and the ileocecal valve. The colonoscope was then withdrawn. In the proximal ascending colon there was a 2 mm polyp This was removed completely via cold biopsy forceps. In the mid transverse colon there was a 2-3 mm benign-appearing polyp This was removed by cold snare polypectomy with the specimen was not retrieved. In the descending colon there was a 5-6 mm benign-appearing polyp that was seen and removed by hot snare polypectomy Patient had mild sigmoid early diverticular disease and mild tortuosity of the colon Rectum there was a 1-2 mm benign-appearing polyp that was seen and removed by cold biopsy forceps On retroflexion and straight on view the patient had trace to 1+ internal hemorrhoids The patient tolerated the procedure well without difficulty. WITHDRAWAL TIME: 15 minutes QUALITY OF THE PREP: [place] Bowel Prep score: 9. COMPLICATIONS : None SPECIMENS: Ascending colon polyp Descending colon polyp Rectal polyp DISPOSITION: Transfer back to the floor Stable PLAN: 1. Repeat colonoscopy base on biopsy result likely in three years 2. Resume GI soft diet advance as tolerated 3. Okay to resume Eliquis in 48 hours 4. Outpatient follow up with me in 4-6 weeks to review results and discuss further management KENNY CASTANEDA MD Nov 03, 2024 15:08
[2024-11-03] MEDS ORDERED: HYDROmorphone HCL 2 MG/ML VL/or syr IV PRN (15:15)
[2024-11-04 05:00] VITALS: BP 111/61; PULSE 74; RESP 18; TEMP 98.2; O2SAT 94
[2024-11-04 08:00] VITALS: PULSE 80; RESP 18; O2SAT 97
[2024-11-04 09:30] VITALS: BP 111/50; PULSE 74; RESP 16; TEMP 98.9; O2SAT 97
--- NOTE | 2024-11-04 11:10 | DVHPN2 ---
Reviewed: Care Plan, H&P, Labs, Medications, Previous Orders, Radiology Changes from previous H/P or p: No Changes Eyes: No Pain, No Vision change, No Conjunctivae inflammation, No Eyelid inflammation, No Other, No Redness ENT: No Ear pain, No Ear discharge, No Nose pain, No Nose discharge, No Nose congestion, No Mouth pain, No Mouth swelling, No Throat pain, No Throat swelling, No Other Cardiovascular: No Chest Pain, No Palpitations, No Orthopnea, No Paroxysmal Noc. Dyspnea, No Edema, No Lt Headedness, No Other Respiratory: No Cough, No Dry, No Shortness of breath, No SOB with excertion, No Wheezing, No Hemoptysis, No Pleuritic Pain, No Sputum, No Other Gastrointestinal: No Nausea, No Vomiting; Abdominal Pain, Diarrhea, C onstipation, Melena; No Hematochezia, No Other Genitourinary: No Dysuria, No Frequency, No Incontinence, No Hematuria, No Retention, No Other Musculoskeletal: No other, No neck pain, No shoulder pain, No arm pain, No back pain, No hand pain, No leg pain, No foot pain Skin: No Rash, No Lesions, No Jaundice, No Bruising, No Other Objective Vitals Vital Signs Date Time Temp Pulse Resp B/P (MAP) Pulse Ox O2 Delivery O2 Flow Rate FiO2 11/04/24 09:30 98.9 74 16 111/50 (70) 97 98.9 11/03/24 20:00 Nasal Cannula* 2 28 Intake/Output Intake and Output 11/04/24 07:00 Intake Total 410 ml Output Total 400 ml Balance 10 ml Intake Oral 400 ml IV Total 10 ml Output Urine Total 400 ml # Voids 1 # Bowel Movements 6 Medications Current Medications Medications Dose Ordered Sig/[place] Route Start Time Stop Time Status Last Admin Dose Admin Ondansetron HCl 4 mg Q4HP PRN IV 10/28/24 11:00 10/29/24 20:23 4 MG Docusate Sodium 100 mg BIDPRN PRN PO 10/28/24 11:00 Acetaminophen 650 mg Q6HP PRN PO 10/28/24 11:00 Amlodipine Besylate 2.5 mg DAILY PO 10/29/24 10:00 11/03/24 10:10 2.5 MG Atorvastatin Calcium 20 mg DAILY PO 10/29/24 10:00 11/03/24 10:09 20 MG Montelukast Sodium 10 mg DAILY PO 10/29/24 10:00 11/03/24 10:09 10 MG Oxycodone/ Acetaminophen 1 tab QID PO 10/28/24 12:00 11/03/24 18:02 1 TAB Patient Own Medication 1 puff BID IN 10/28/24 22:00 Patient Own Medication 400 mg BID PO 10/28/24 22:00 UNV Patient Own Medication 125 mcg QAM PO 10/29/24 07:00 UNV Patient Own Medication 10 mg DAILY PO 10/29/24 10:00 UNV Bupropion HCl 100 mg BID@07,19 PO 10/28/24 19:00 11/04/24 06:34 100 MG Fluoxetine HCl 60 mg DAILY PO 10/29/24 10:00 11/03/24 10:09 60 MG Gabapentin 400 mg BID PO 10/28/24 22:00 11/03/24 21:03 400 MG Lisinopril 10 mg DAILY PO 10/29/24 10:00 11/03/24 10:09 10 MG Levothyroxine Sodium 100 mcg QAM PO 10/29/24 07:00 11/04/24 06:34 100 MCG Levothyroxine Sodium 25 mcg QAM PO 10/29/24 07:00 11/04/24 06:33 25 MCG Pantoprazole Sodium 40 mg DAILY PO 10/30/24 10:47 11/03/24 10:09 40 MG Trazodone HCl 200 mg HS PO 11/01/24 22:00 11/03/24 21:03 200 MG Alprazolam 1 mg TID PO 11/01/24 14:00 11/04/24 06:33 1 MG Laboratory Results Laboratory Tests 11/03/24 05:59 Urinalysis Test 10/29/24 03:00 Urine Color Light-red (Yellow) Urine Clarity Turbid (Clear) H Urine pH 6.0 (5.0-9.0) Urine Specific [place] 1.005 (1.001-1.035) Urine Protein 1+ (Negative) H Urine Ketones Negative (Negative) Urine Blood 3+ /uL (Negative) H Urine Nitrite Negative (Negative) Urine Bilirubin Negative (Negative) Urine Urobilinogen Normal mg/dL (Negative) Urine Leukocyte Esterase 1+ /uL (Negative) Urine RBC 489 /hpf (0 - 4) Urine Microscopic WBC 603 /HPF (0-5) H Urine Squamous Epithelial Cells None seen /hpf (<5) Urine Bacteria None seen /hpf (None Seen) Urine Glucose Normal mg/dL (Normal) Microbiology Microbiology Date/Time Source Procedure Growth Status 10/29/24 03:00 Voided Urine Urine Culture - Final Complete Labs and/or images reviewed: Labs reviewed by me, Image(s) reviewed by me Assessment/Plan Assessment/Plan Hematochezia GI consult for Dr. Espino appreciated, Multiple colonic polyps by EGD by Dr. 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
--- NOTE | 2024-11-04 11:14 | DVHDS2 ---
Discharge Summary Date of Admission Oct 28, 2024 at 10:52 Date of Discharge: Nov 04, 2024 Admitting Diagnosis Blood in the stool Wounds: Colonoscopy Labs/Diagnostic Data: Laboratory Results Test 11/04/24 05:35 11/03/24 05:59 10/29/24 20:20 10/29/24 16:01 White Blood Count 6.9 10^3/uL (4.4-10.8) Red Blood Count 4.25 10^6/uL (4.0-5.20) Hemoglobin 12.8 g/dL (12.2-16.2) Hematocrit 38.9 % (36.0-46.0) Mean Corpuscular Volume 91.5 fL (80.0-100.0) Mean Corpuscular Hemoglobin 30.1 pg (28.0-32.0) Mean Corpuscular Hemoglobin Concent 32.9 g/dL (32.0-36.0) Red Cell Distribution Width 13.7 % (11.8-14.3) Platelet Count 178 10^3/uL (140-450) Mean Platelet Volume 9.4 fL (6.9-10.8) Neutrophils (%) (Auto) 58.7 % (37.0-80.0) Lymphocytes (%) (Auto) 29.7 % (10.0-50.0) Monocytes (%) (Auto) 9.2 % (0.0-12.0) Eosinophils (%) (Auto) 1.8 % (0.0-7.0) Basophils (%) (Auto) 0.6 % (0.0-2.0) Neutrophils # (Auto) 4.1 10 ^3/uL (1.6-8.6) Lymphocytes # (Auto) 2.1 10 ^3/uL (0.4-5.4) Monocytes # (Auto) 0.6 10 ^3/uL (0-1.3) Eosinophils # (Auto) 0.1 10 ^3/uL (0-0.8) Basophils # (Auto) 0 10 ^3/uL (0-0.2) Nucleated Red Blood Cells 0.0 % Sodium Level 145 mmol/L (136-145) Potassium Level 4.2 mmol/L (3.5-5.1) Chloride Level 107 mmol/L (98-107) Carbon Dioxide Level 30 mmol/L (20-31) Anion Gap 8 (5-15) Blood Urea Nitrogen 6 mg/dL (9-23) Creatinine 0.97 mg/dL (0.550-1.02) Glomerular Filtration Rate Calc 61 mL/min (>90) BUN/Creatinine Ratio 6.2 (10.0-20.0) Serum Glucose 87 mg/dL (74-106) Calcium Level 9.6 mg/dL (8.7-10.4) Total Bilirubin 0.4 mg/dL (0.2-1.0) Aspartate Amino Transferase (AST) 16 U/L (13-40) Alanine Aminotransferase (ALT) 32 U/L (7-40) Alkaline Phosphatase 75 U/L (46-116) Total Protein 5.7 g/dL (5.7-8.2) Albumin 3.5 g/dL (3.2-4.8) Stool Occult Blood Positive (Negative) Stool Occult Blood Sample #3 (Negative) Prothrombin Time 11.8 sec (9.3-11.8) Prothrombin Time INR 1.13 (0.9-1.15) Test 10/29/24 03:00 10/28/24 07:48 Urine Color Light-red (Yellow) Urine Clarity Turbid (Clear) Urine pH 6.0 (5.0-9.0) Urine Specific [place] 1.005 (1.001-1.035) Urine Protein 1+ (Negative) Urine Ketones Negative (Negative) Urine Blood 3+ /uL (Negative) Urine Nitrite Negative (Negative) Urine Bilirubin Negative (Negative) Urine Urobilinogen Normal mg/dL (Negative) Urine Leukocyte Esterase 1+ /uL (Negative) Urine RBC 489 /hpf (0 - 4) Urine Microscopic WBC 603 /HPF (0-5) Urine Squamous Epithelial Cells None seen /hpf (<5) Urine Bacteria None seen /hpf (None Seen) Urine Glucose Normal mg/dL (Normal) Activated Partial Thromboplast Time 26.6 SEC (24.5-34.5) Hepatitis B Surface Antigen Negative (Negative) Hepatitis C Antibody Negative (Negative) Other Laboratory Tests 11/03/24 05:59 Brief Hx & Hospital Course: 74-year-old female with a history of hypertension hypercholesterolemia history of DVT on Eliquis COPD history of left nephrectomy anxiety came in for blood in the stool. Found to have colonic polyps by EGD by Dr. Sunitha Castaneda underwent removal of the polyps also grade 1 internal hemorrhoids. Complained of rash showed the inferior abdominal wall and being with a bilateral breaths found to be [place] infection being treated with a clotrimazole cream. Discharged home. Prescription for clotrimazole given handwritten prescription. Patient will follow up with Dr. Castaneda for the biopsy result Hemoglobin and hematocrit stable at the time of discharge. Consults/Reason for consult GI Dr. Sunitha Castaneda GI Dr. Espino Operations or Procedures Colonoscopy Condition at Discharge: Fair Final Diagnosis/Problems List Hematochezia GI consult for Dr. Espino appreciated, Multiple colonic polyps by EGD by Dr. 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 Sunitha Castaneda in 10 days for the biopsy result Medications: Clotrimazole cream Handwritten prescription given Scheduled Amlodipine Besylate (Amlodipine Besylate), 2.5 MG PO DAILY, (Reported) Apixaban Base (Eliquis), 5 MG PO BID Atorvastatin Calcium (Lipitor), 1 TAB PO DAILY, (Reported) Buprenorphine (Butrans), 1 PATCH TOP QWEEKLY, (Reported) Fluticasone-Salmeterol (Advair Diskus 250/50), 1 PUFF INH BID, (Reported) Gabapentin (Gabapentin), 400 MG PO BID, (Reported) Lamotrigine (Lamotrigine), 1 TAB PO BID, (Reported) Levothyroxine Sodium (Levothyroxine Sodium), 125 MCG PO QAM, (Reported) Lisinopril (Lisinopril), 10 MG PO DAILY, (Reported) Methocarbamol (Methocarbamol), 750 MG PO BID, (Reported) Montelukast Sodium (Montelukast Sodium), 1 TAB PO DAILY, (Reported) Omeprazole (Gnp Omeprazole), 2 TAB PO BID, (Reported) Oxycodone W/ Acetaminophen (Percocet 5/325MG), 1 TAB PO QID, (Reported) Trazodone HCl (Trazodone Hydrochloride), 100 MG PO HS, (Reported) Miscellaneous Medications Bupropion Hcl (Bupropion Hcl Sr), 100 MG PO, (Reported) Fluoxetine HCl (Fluoxetine), 30 MG PO, (Reported) Fluticasone Propionate (Fluticasone Propionate), 50 MCG ISAIAS, (Reported) Discontinued Medications Apixaban Base (Eliquis), 10 MG PO BID 35 (Time Taken for discharge summary 35 minutes) Discharge Statement: "Patient was advised to return to the ER or call 911 if any headaches, dizziness, shortness of breath, chest pain, abdominal pain, bleeding, fevers, or worsening of medical condition. Patient was counseled about treatment plan, medications, possible side effects, patientverbalized understanding. All questions were answered to the best of my ability. This discharge took greater then 30 minutes in planning, reviewing documentation, counseling the patient, and discussing with other team members." ASSESSMENT ASSESSMENT Hospital Course Improved Assessment Hematochezia GI consult for Dr. Espino appreciated, Multiple colonic polyps by EGD by Dr. 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
[2024-11-04 12:53] VITALS: BP 137/52; PULSE 84; RESP 18; TEMP 98.3; O2SAT 93
[2024-11-04 13:26] VITALS: BP 111/50; PULSE 80; RESP 15; TEMP 36.8; O2SAT 97
[2024-11-04] MEDS ORDERED: ETOMIDATE (2MG/ML) 20ML VIAL IV ONE (13:59)
== END 2024-11-04 14:00 | disposition home or self-care (01) | DRG 395 ==
LOC: ER 07:07 → OVERFLOW 10:52 → EAST 17:51
PROVIDERS: ADMIT Family Medicine; ATTEND Family Medicine
PROC: 0DBP8ZZ Excision of Rectum, Via Natural or Artificial Opening Endoscopic (ICD-10-PCS; 2024-11-03)
PROC: 0DBM8ZZ Excision of Descending Colon, Via Natural or Artificial Opening Endoscopic (ICD-10-PCS; 2024-11-03)
PROC: 0DBL8ZZ Excision of Transverse Colon, Via Natural or Artificial Opening Endoscopic (ICD-10-PCS; 2024-11-03)
PROC: 0DBK8ZZ Excision of Ascending Colon, Via Natural or Artificial Opening Endoscopic (ICD-10-PCS; principal; 2024-11-03 14:28)
DX: K62.1 Rectal polyp (principal); K64.0 First degree hemorrhoids; J44.9 Chronic obstructive pulmonary disease, unspecified; D64.9 Anemia, unspecified; I10 Essential (primary) hypertension; E78.00 Pure hypercholesterolemia, unspecified; F41.9 Anxiety disorder, unspecified; K63.5 Polyp of colon; E11.9 Type 2 diabetes mellitus without complications; Z79.01 Long term (current) use of anticoagulants; Z79.899 Other long term (current) drug therapy; Z90.710 Acquired absence of both cervix and uterus; Z90.49 Acquired absence of other specified parts of digestive tract; Z83.79 Family history of other diseases of the digestive system; Z86.718 Personal history of other venous thrombosis and embolism; Z90.5 Acquired absence of kidney
CPT/HCPCS: 36415; 45385; 71045; 74176; 80048; 80053; 81001; 82270; 85025; 85610; 85730; 86256; 86671; 86803; 86850; 86900; 86901; 87086; 87340; 96374; 96375; G0378; J2003; J2250; J2405; J2704